=== PATIENT | female | born 1940 | race Caucasian/White ===

== ENCOUNTER 2017-08-03 06:18 | Day surgery (SDC) | payer OTHER, BC ==
[2017-08-01 09:57] VITALS: BMI 37.0
--- NOTE | 2017-08-01 10:36 | PAT Medication Instructions ---
Service Date Aug 01, 2017. Current Home Medication List Acetaminophen (Tylenol), 500-1,000 MG PO UD PRN for Pain or Fever Aspirin (Aspirin Ec), 81 MG PO HS Calcium Carbonate-Vitamin D (Calcium 600 + D), 1 TAB PO BID Empagliflozin (Jardiance), 10 MG PO QAM Esomeprazole Magnesium (Esomeprazole Magnesium), 1 CAP PO QAM Fish Oil (Lane-3), 1 CAP PO QAM Szyfjjndsdl-Ezozscmpkko-Mzp C- (Glucosamine Chondroitin), 1 TAB PO QAM Lorazepam (Ativan), 0.5 MG PO TID PRN for Anxiety Losartan Potassium (Cozaar), 100 MG PO QAM Metoprolol Succinate (Metoprolol Succinate ER), 25 MG PO HS Multivitamins (Daily Alec), 1 TAB PO QAM Ropinirole Hydrochloride (Ropinirole Er), 2 MG PO AFTERNOON Ropinirole Hydrochloride (Requip), 0.5 MG PO HS Simvastatin (Simvastatin), 10 MG PO QPM Medication Instructions For Your Scheduled Surgery - Check with surgeon for instructions: Aspirin (Aspirin Ec), 81 MG PO HS - Hold the following medications 24 hours prior to surgery: Ropinirole Hydrochloride (Ropinirole Er), 2 MG PO AFTERNOON Ropinirole Hydrochloride (Requip), 0.5 MG PO HS - Hold the following medications the morning of surgery: Multivitamins (Daily Alec), 1 TAB PO QAM Losartan Potassium (Cozaar), 100 MG PO QAM Fish Oil (Lane-3), 1 CAP PO QAM Mguovkclbyy-Rgauzaxoqqk-Ewz C- (Glucosamine Chondroitin), 1 TAB PO QAM Empagliflozin (Jardiance), 10 MG PO QAM Calcium Carbonate-Vitamin D (Calcium 600 + D), 1 TAB PO BID - Take the following medications the morning of surgery with a sip of water: Lorazepam (Ativan), 0.5 MG PO TID PRN for Anxiety (if needed) Esomeprazole Magnesium (Esomeprazole Magnesium), 1 CAP PO QAM Acetaminophen (Tylenol), 500-1,000 MG PO UD PRN for Pain or Fever (okay to take up to 4 hours prior to surgery if needed) - Take the following medications as scheduled the night before surgery: Simvastatin (Simvastatin), 10 MG PO QPM Metoprolol Succinate (Metoprolol Succinate ER), 25 MG PO HS Lorazepam (Ativan), 0.5 MG PO TID PRN for Anxiety (if needed) Calcium Carbonate-Vitamin D (Calcium 600 + D), 1 TAB PO BID Acetaminophen (Tylenol), 500-1,000 MG PO UD PRN for Pain or Fever (if needed) If you have any questions please call us at [phone] or [phone] or [phone]
[2017-08-01 11:09] LABS: BASO % 0.8 %; BASO ABS # 0.05 K/uL (0-0.2); EOS % 4.7 %; EOS ABS # 0.28 K/uL (0-0.5); HEMOGLOBIN 14.4 g/dL (12.0-16.0); IG# 0.05 K/uL (0.00-0.02); LYMPH % 34.5 %; LYMPH ABS # 2.04 K/uL (1.2-3.4); MEAN CORPUSCULAR HEMOGLOBIN 30.4 pg (25-34); MEAN CORPUSCULAR HGB CONC 32.7 g/dl (32-36); MEAN PLATELET VOLUME 11.2 fL (7.4-10.4); MONO % 9.8 %; MONO ABS # 0.58 K/uL (0.11-0.59); NEUT % 49.4 %; NEUT ABS # 2.91 K/uL (1.4-6.5); PLATELET COUNT 199 K/uL (130-400); RED CELL DISTRIBUTION WIDTH CV 13.7 % (11.5-14.5); RED CELL DISTRIBUTION WIDTH SD 46.6 fL (36.4-46.3); WHITE BLOOD COUNT 5.91 K/uL (4.8-10.8)
[2017-08-01 11:15] LABS: INR 0.9 (0.9-1.1)
--- NOTE | 2017-08-02 19:28 | HISTORY & PHYSICAL EXAMINATION ---
DATE OF ADMISSION: 08/03/2017 ADMISSION HISTORY AND PHYSICAL CHIEF COMPLAINT: Right shoulder injury. HISTORY OF PRESENT ILLNESS: This is a 77-year-old female patient of Dr. Childers who sustained an injury, lifting injury in March of 2007. She failed conservative treatment including intraarticular injections, physical therapy and anti-inflammatories. MRI did confirm that she had a rotator cuff tear, impingement and AC arthritis. After failure of conservative treatment, the patient wished to proceed with a right shoulder arthroscopic subacromial decompression, rotator cuff repair, and distal clavicle excision. PAST MEDICAL HISTORY: Hypertension, GERD, sleep apnea with the use of CPAP, anxiety, diabetes mellitus, rheumatoid arthritis, osteoarthritis, spine problems, spinal stenosis, acid reflux, hiatal hernia, obesity, and left breast cancer. SOCIAL HISTORY: Nonsmoker, nondrinker. FAMILY HISTORY: Noncontributory. REVIEW OF SYSTEMS: The patient complains of right shoulder pain and decreased strength since her injury. Otherwise, denies any shortness of breath, chest pain, nausea, vomiting or any other joint complaints. MEDICATIONS: Include metoprolol 25 mg daily, Requip 2 mg daily, Cozaar 100 mg daily, simvastatin 10 mg daily, aspirin 81 mg daily, calcium plus D b.i.d., Glucosamine chondroitin daily, multivitamin daily, fish oil daily, ropinirole 0.5 mg at bedtime, lorazepam 0.5 mg at bedtime p.r.n., pantoprazole 20 mg half a tablet daily as needed. Allergies: IVP Dye PHYSICAL EXAMINATION: GENERAL: Well-developed, well-nourished 77-year-old female in no acute distress. She is alert and oriented x3 and pleasant. HEENT: Normocephalic, atraumatic. Extraocular motions are intact. Pupils are equal and reactive to light. HEART: Regular rate and rhythm, no murmurs appreciated. LUNGS: Clear. ABDOMEN: Soft and nontender, bowel sounds are present. EXTREMITIES: Right shoulder reveals pain with impingement maneuvering. She has an active range of motion of 120, passively to 160. She has 3/5 strength globally. NEUROLOGIC: Neurovascularly, she is intact in her right upper extremity. DIAGNOSES: Right shoulder rotator cuff tear, impingement and distal clavicle arthritis. She also has a history of hypertension, hypercholesterolemia, gastroesophageal reflux disease, sleep apnea with the use of CPAP, anxiety, diabetes mellitus, rheumatoid arthritis, osteoarthritis, spine problems, spinal stenosis, acid reflux, hiatal hernia, obesity, and history of left mastectomy. PLAN: The patient was advised of her diagnosis. Indications, risks, benefits, and postop course have all been reviewed. The patient wishes to proceed with a right shoulder arthroscopic subacromial decompression, rotator cuff repair and possible distal clavicle excision. Necessary consent forms, preoperative testing and clearances were obtained. Please note that the patient cannot vein puncture in her left arm due to her left UE mastectomy. MTDD
[~2017-08-03] VITALS: Ht 160 cm; Wt 95.3 kg
[~2017-08-03 06:18] MED LIST: ASPI81TA28 PO; CALC-20 PO; CEFAZOLIN 2000MG IV PUSH 15 ML IV SCH; DEXAMETHASONE SOD INJ 4 MG/ML VIAL ONE; EMPA1TAB PO; ESOM45CA PO; FENTANYL CITRATE INJ 50 MCG/1 ML 2 ML VIAL ONE; GLUCTAB7 PO; LACTATED RINGER'S 1000ML 1,000 ML IV SCH; LORA-741 PO; LOSA100T65 PO; MIDAZOLAM HCL 1 MG/ML 2ML VIAL ONE; MULT-589 PO; OMEG10007 PO; ONDANSETRON INJ 2 MG/ML 2 ML VIAL ONE; PROPOFOL IV EMULSION 10 MG/ML 20 ML VIAL IV ONE; ROCURONIUM BROMIDE 10 MG/ML 5 ML VIAL IV ONE; ROPI0.5T PO; ROPI1TAB70 PO; SIMV-150 PO; TPRSR/50 PO; TYLOTC500 PO
[2017-08-03] MEDS ORDERED: ROPIVACAINE 0.5% 5 MG/ML 30 ML VIAL ONE (06:23)
[2017-08-03 07:13] VITALS: BP 131/81; PULSE 74; TEMP 36.4; O2SAT 92; Ht 160 cm; Wt 95.3 kg
[2017-08-03] MEDS ORDERED: EpINEphrine HCL INJ 1 MG/ML 5ML SYRINGE ONE ×2 (07:52→09:23)
--- NOTE | 2017-08-03 08:04 | History & Physical Bridge Note ---
H&P Re-Evaluation Bridge Note: I have examined the patient, reviewed the History & Physical and in the interval since the performance of the History & Physical I have noted the following changes of clinical significance: No changes noted
[2017-08-03] MEDS ORDERED: PHENYLEPHRINE 100MCG/ML 5ML SYR IV PRN (08:45)
[2017-08-03] MEDS ORDERED: EpHEDrine SULFATE INJ 50 MG/ML AMP IV PRN (08:45)
[2017-08-03] MEDS ORDERED: PHENYLEPHRINE 100MCG/ML 5ML SYR ONE (08:45)
[2017-08-03] MEDS ORDERED: ATROPINE SULFATE 0.1 MG/ML 5ML SYR IV PRN (08:45)
[2017-08-03] MEDS ORDERED: ONDANSETRON INJ 2 MG/ML 2 ML VIAL IV PRN (08:45)
[2017-08-03] MEDS ORDERED: EpHEDrine SULFATE 50MG/5ML SYR ONE (08:45)
[2017-08-03] MEDS ORDERED: FENTANYL CITRATE INJ 50 MCG/1 ML 2 ML VIAL ONE (08:47)
[2017-08-03] MEDS ORDERED: PROPOFOL IV EMULSION 10 MG/ML 20 ML VIAL IV ONE (08:48)
[2017-08-03] MEDS ORDERED: GLYCOPYRROLATE INJ 0.2 MG/ML VIAL ONE (08:52)
[2017-08-03] MEDS ORDERED: LIDOCAINE HCL 2% 2 ML VIAL (20MG/ML) ONE (08:54)
--- NOTE | 2017-08-03 10:30 | [facility] Post Operative Brief Note ---
Immediate Operative Summary Operative Date Aug 03, 2017. Pre-Operative Diagnosis Right Shoulder: Rotator Cuff Tear, Impingement and Distal Clavicle Arthritis Post-Operative Diagnosis Right Shoulder: Rotator Cuff Tear, Impingement and Distal Clavicle Arthritis Procedure(s) Performed right shoulder arthroscopy rotator cuff repair subacromial decompression and distal clavicle excision Surgeon Dr. Head Coat Agent Surgeon(s) WALDEMAR Alberts Estimated Blood Loss 5cc Findings Consistent with Post-Op Diagnosis Specimens none per surgeon Drains None Anesthesia Type General Regional Complication(s) none Disposition Disposition: Recovery Room / PACU
[2017-08-03] MEDS ORDERED: SODIUM CHLORIDE 0.9% 1000ML 1,000 ML IV SCH (10:38)
[2017-08-03] MEDS ORDERED: OXYC-57 PO (10:41)
--- NOTE | 2017-08-03 10:44 | Discharge Instructions ---
Discharge Instructions Date of Service Aug 03, 2017. Admission Reason for Admission: Right Shoulder Impingement Syndrome, Rtc Tear, Acr Discharge Discharge Diagnosis / Problem: Right shoulder rotator cuff repair, decompression and distal clavicle excis Discharge Goals Goal(s): Improve function Activity Recommendations Activity Limitations: as noted below . Instructions / Follow-Up Instructions / Follow-Up Please see Printed Home Instructions in Chart NO formal physical therapy, please see printed home exercise sheet in chart. Follow up with Dr. Head 10-12 days post op as scheduled, call [phone] to confirm if needed. Current Hospital Diet Patient's current hospital diet: Discharge Diet Recommended Diet: Diabetes Type 2 Diet Procedures Procedures Performed: right shoulder arthroscopy rotator cuff repair subacromial decompression and distal clavicle excision Pending Studies Studies pending at discharge: no Medical Emergencies . Who to Call and When: Medical Emergencies: If at any time you feel your situation is an emergency, please call 911 immediately. . Non-Emergent Contact Non-Emergency issues call your: Primary Care Provider . "Provider Documentation" section prepared by Can Michele. . VTE Core Measure Inpt VTE Proph given/why not?: Treatment not indicated
[2017-08-03] MEDS ORDERED: OXYCODONE/ACETAMINOPHEN 5-325 TAB PO PRN ×2 (10:45)
[2017-08-03] MEDS: HYDROmorphone INJ 2 MG/ML SYR/VIAL IV PRN ×4 (10:52→11:09)
--- NOTE | 2017-08-03 11:00 | OPERATIVE REPORT ---
DATE OF OPERATION: 08/03/2017 INDICATION FOR PROCEDURE: The patient is a 77-year-old female who presents with right shoulder pain, chronic. She was worked up with x-rays and MRI demonstrating a full thickness rotator cuff tear of the supraspinatus with minimal retraction and inflammation of AC joint consistent with AC joint arthritis. She may have some tendinopathy of the biceps tendon. PREOPERATIVE DIAGNOSES: Right shoulder subacromial impingement, acromioclavicular joint arthritis and rotator cuff tear. POSTOPERATIVE DIAGNOSES: Same. PROCEDURE: Right shoulder arthroscopy with arthroscopic subacromial decompression, distal clavicle excision and rotator cuff repair. SURGEON: Dr. Head. SOFTWARE TEAM LEADER: Can Michele PA-C. ANESTHESIA: Regional block and general. OPERATIVE PROCEDURE: The patient was taken to the operating room after a regional block anesthetic placed in the holding area. She was placed under general anesthetic. She was placed on a 70 degree beach chair position, a Schlein shoulder table. The right upper extremity was prepped and draped in sterile fashion. Examination noted she had good range of motion and she had an obese arm. Arthroscopy was performed starting with a posterior arthroscopy portal in the soft spot, the rotator interval, and a lateral portal in the subacromial space and anterior and posterior superior lateral portals for suture anchor placement. In the glenohumeral joint, she had normal articular surface on the glenoid and humeral head and normal labrum, some synovitis around the labrum. The labral attachment was intact. The biceps anchor was intact. She had some a little bit of widening of the biceps tendon in general, but no fraying of the biceps tendon at all. The subscapularis tendon was intact. Supraspinatus tendon had a full thickness rotator cuff tear with minimal retraction, but there was some delamination between the superior and inferior release and some of this was extending toward the infraspinatus anterior edge. There was a little undersurface tearing of the supraspinatus. In the subacromial space, a crescent fairly large supraspinatus tendon tear was noted with the entire supraspinatus tendon being torn and mildly retracted. There was a soft tissue cuff tissue at the greater tuberosity shortening to the tendon tissue. There was fraying of the CA ligament, type 2 acromion process and probably inferior AC joint causing impingement and there was grade 4 wear in the posterior aspect of the distal clavicle articular surface with some chronic bursitis. In the glenohumeral joint, I did a minor debridement of the synovium around the labrum and debrided the undersurface of the rotator cuff tear. I debrided some of the footprint that we could see better from the intraarticular view. Then, in the subacromial space a thorough bursectomy was performed removing all pathological bursa and I ablated the bursa on the undersurface of the acromion and released the CA ligament off the spur on the anterior acromion. I ablated the inferior AC joint capsule to expose 1 cm of distal clavicle. The edges of the rotator cuff were debrided again. The footprint was clearly debrided. The entire footprint of the supraspinatus from the articular margin out the lateral greater tuberosity and off the edge of the lateral greater tuberosity to get bleeding response to help with healing. The acromioplasty was performed using a 5.5 bur planing down the acromion to a type 1 flat shape and 1 cm distal clavicle was resected. The rotator cuff was repaired using dual row fixation. The medial row had good bone laterally. She had fair bone with the anterior anchor being in softer bone adjacent to the bicipital groove and a little bit better bone in the supraspinatus anchor area. The medial row with Healicoil 5.5 mm Ferreira [employer]hew anchors with tapes and sutures. Sutures were passed in a horizontal mattress fashion and tied down with a Pepe sliding locking knot 3 reverse half hitches on alternating posts and then #1 Ultrabraid suture from each anchor and 1 tape from each anchor was placed into the posterior footprint anchor and similar sutures were placed into the anterior footprint with a crisscross compression across the repair. Despite the soft bone, the anchor felt satisfactory with range of motion of the arm, but there was no tension repair to over the side and there was no impingement. The port sites were closed with nylon sutures. Sterile dressings applied and a pillow sling immobilizer. The patient tolerated the procedure well. Can Michele PA-C was my clinical education assistant. He functioned as clinical education assistant for the entire procedure. He assisted in patient positioning, prepping, draping, arm positioning, instrument management, suture management during the repair and performed the skin closure, dressings and sling application, and will participate in postoperative care of the patient. I attest to the content of the Intraoperative Record and any orders documented therein. Any exception s are noted below.
[2017-08-03] MEDS ORDERED: HYDROmorphone INJ 1 MG/ML SYR ONE (11:24)
[2017-08-03] MEDS ORDERED: NURSING VERBAL MED ORDER ONE (11:24)
[2017-08-03] MEDS ORDERED: KETOROLAC TROMETHAMINE 30 MG/ML VIAL ONE (11:24)
[2017-08-03 12:10] VITALS: BP 134/61; PULSE 92; TEMP 36.5; O2SAT 93
[2017-08-03 12:40] VITALS: BP 131/60; PULSE 94; O2SAT 93
--- NOTE | 2017-08-03 13:03 | Anesthesiology Progress Note ---
Anesthesia Post Op Note Date & Time Aug 03, 2017 at 13:03 Vital Signs Pain Intensity: 2.0 Vital Signs Past 12 Hours Date Time Temp Pulse Resp B/P (MAP) Pulse Ox O2 Delivery O2 Flow Rate FiO2 08/03/17 12:05 36.4 91 14 131/68 93 Nasal Cannula 3 08/03/17 11:55 91 19 150/73 94 Nasal Cannula 3 08/03/17 11:45 93 11 141/70 93 Nasal Cannula 4 08/03/17 11:35 91 11 123/92 93 Nasal Cannula 4 08/03/17 11:25 91 12 158/73 94 Nasal Cannula 2 08/03/17 11:15 97 15 147/70 93 Nasal Cannula 2 08/03/17 11:05 98 22 141/80 94 Nasal Cannula 2 08/03/17 10:55 97 15 146/69 95 Oxymask 10 08/03/17 10:45 99 18 159/75 97 Oxymask 10 08/03/17 10:39 36.4 104 17 162/84 96 Oxymask 10 08/03/17 07:13 36.4 74 18 131/81 (98) 92 Room Air Notes Mental Status: alert / awake / arousable, participated in evaluation Pt Amnestic to Procedure: Yes Nausea / Vomiting: adequately controlled Pain: adequately controlled Airway Patency, RR, SpO2: stable & adequate BP & HR: stable & adequate Hydration State: stable & adequate Anesthetic Complications: no major complications apparent
[2017-08-03 13:10] VITALS: BP 137/64; PULSE 90; TEMP 36.3; O2SAT 94
== END 2017-08-03 13:54 | disposition home or self-care (01) ==
LOC: C.ACU 06:18
PROVIDERS: ATTEND Orthopaedic Surgery Sports Medicine
DX: M25.811 Other specified joint disorders, right shoulder (principal); S46.011A Strain of muscle(s) and tendon(s) of the rotator cuff of right shoulder, initial encounter; X50.9XXA Other and unspecified overexertion or strenuous movements or postures, initial encounter; I10 Essential (primary) hypertension; K21.9 Gastro-esophageal reflux disease without esophagitis; G47.30 Sleep apnea, unspecified; F41.9 Anxiety disorder, unspecified; E11.9 Type 2 diabetes mellitus without complications; M19.90 Unspecified osteoarthritis, unspecified site; E66.9 Obesity, unspecified; Z85.3 Personal history of malignant neoplasm of breast; Z79.899 Other long term (current) drug therapy; Z79.82 Long term (current) use of aspirin

== ENCOUNTER → 2017-08-25 | Outpatient (CLI) | payer OTHER, BC ==
[~2017-08-25] VITALS: Ht 160 cm; Wt 208.2 kg
[~2017-08-25] MED LIST changes: -CEFAZOLIN 2000MG IV PUSH 15 ML IV SCH; -DEXAMETHASONE SOD INJ 4 MG/ML VIAL ONE; -FENTANYL CITRATE INJ 50 MCG/1 ML 2 ML VIAL ONE; -LACTATED RINGER'S 1000ML 1,000 ML IV SCH; -MIDAZOLAM HCL 1 MG/ML 2ML VIAL ONE; -OMEG10007 PO; -ONDANSETRON INJ 2 MG/ML 2 ML VIAL ONE; +OXYC-57 PO; -PROPOFOL IV EMULSION 10 MG/ML 20 ML VIAL IV ONE; -ROCURONIUM BROMIDE 10 MG/ML 5 ML VIAL IV ONE; -TYLOTC500 PO
[2017-08-25 12:54] VITALS: BP 131/82; PULSE 64; Ht 160 cm; Wt 208.2 kg
== END | disposition home or self-care (01) ==
LOC: C.NEUR 12:20
PROVIDERS: ATTEND Internal Medicine Pulmonary Disease
DX: G47.33 Obstructive sleep apnea (adult) (pediatric) (principal); I10 Essential (primary) hypertension; E66.9 Obesity, unspecified; Z68.36 Body mass index [BMI] 36.0-36.9, adult

== ENCOUNTER 2020-03-31 10:57 | Observation (INO) ==
--- NOTE | 2020-03-31 11:39 | Emergency Department Note ---
Impression & Plan Left leg weakness ED Provider Note Provider: Keith oTrres MD DATE OF SERVICE: 03/31/2020 CHIEF COMPLAINT: Weakness HISTORY OF PRESENT ILLNESS: Patient is a 79-year-old female with history of prediabetes, hypertension presenting here today complaining of some left-sided weakness starting yesterday. Sometimes yesterday morning maybe around 10 AM or so began to have some issues walking with her left leg. Was able to drive to get around but just felt a bit unsteady with that in intensity moving quite as well. Denies significant issue with her right leg with the arm. Denies headache or speech issues. Denies trauma. Denies fever. Patient denies likely any falls. Denies any acute visual changes. Patient states due to some concerns about her kidney she not currently on aspirin or antiplatelets. REVIEW OF SYSTEMS: A total of 10 review of systems was obtained and negative except as stated above in the HPI. PAST MEDICAL HISTORY: As noted above MEDICATIONS: Reviewed home medication list SOCIAL HISTORY: Lives at home, non-smoker PHYSICAL EXAM: GENERAL: alert and oriented in no acute distress on stretcher Head: normocephalic and atraumatic EYES: No injection, discharge or icterus. PERRL, EOMI. NECK: Trachea midline. Supple. ENT: Mucous membranes pink and moist. Pharynx without erythema or exudate. Tongue midline. LUNGS: Airway patent. No retractions. Breath sounds clear HEART: Regular rate and rhythm. No chest wall tenderness ABDOMEN: Soft and non-tender, without guarding or rebound. SKIN: Acyanotic, warm, dry, without rashes EXTREMITIES: Without swelling, tenderness or deformity NEUROLOGICAL: No aphasia. No facial droop or slurred speech. Normal strength and tone in the extremities. Sensation to gross touch normal. There is a slight left arm pronator drift and some difficulty with left [id number] movement in comparison to the contralateral side. EK bpm sinus rhythm first-degree AV block. No PVC. No acute ST segment elevation or depression. Normal QTC. CONTINUOUS CARDIAC MONITORING: was ordered and showed a heart rate of 62 bpm in normal sinus rhythm Patient's hypertension was referred to the hospitalist Patient's laboratory studies and imaging reviewed. Differential includes Infection, dehydration, metabolic abnormality, hypo /hyperglycemia, electrolyte disturbance, anemia, hypoxia, cardiac sources, intracerebral event, toxicologic, neurologic, as well as other pathologies. IMPRESSION/MEDICAL DECISION MAKING: Patient presents with onset yesterday of some slight left-sided weakness predominantly leg. Well-appearing here without severe deficit although there is some subtle left arm pronator drift and some subtle left heel tran ataxia noted. Neurologically otherwise seems intact. Basic labs were obtained and a CT of the head was obtained. Doubt a LVO and given her IV contrast allergy did not immediately pursue CT angiogram of the head. Basic laboratory states here without significant abnormality. No evidence of severe electrolyte abnormality or UTI. CT the head per radiology without evidence of intracranial bleed or large territory stroke. Patient with the subtle signs could very well of suffered a small stroke and discussed with her and her daughter. She and her daughter were in agreement for further observation here in the hospital given her persistence of symptoms and mild deficits. Discussed with her pursuing MRI to exclude stroke. Patient was in agreement with this plan but did request some Ativan for MRI. DIAGNOSIS: Left leg weakness DISPOSITION: Hospitalist will evaluate Patient was agreeable with this plan. Past Med/Surg History Surgical History (Updated 05/27/19 @ 13:59 by Gianna Matute PA-C) History of hysterectomy Family History (Updated 05/27/19 @ 14:01 by Gianna Matute PA-C) Mother Myocardial infarction Father Myocardial infarction Brother Obstructive sleep apnea Social History (Updated 05/27/19 @ 14:01 by Gianna Matute PA-C) Smoking Status: Former smoker Tobacco Type: Cigarettes Preferred Language: Beninese marital status: Feels Safe at Home: Yes Allergies Allergies Allergy/AdvReac Type Severity Reaction Status Date / Time Iodinated Contrast Media Allergy Unknown IVP DYE Verified 03/31/20 13:09 CAUSED HIVES Home Meds Home Medications Medication Instructions Recorded Confirmed calcium carb,lactat-vitamin D3 1 tab PO BID 04/05/19 03/31/20 cholecalciferol (vitamin D3) 25 1,000 units PO QAM 04/05/19 03/31/20 mcg (1,000 unit) capsule losartan 100 mg tablet 100 mg PO QAM 04/05/19 03/31/20 multivitamin 1 tab PO QAM 04/05/19 03/31/20 omega-3 fatty acids 1,000 mg 1,000 mg PO QAM 04/05/19 03/31/20 capsule ropinirole 0.5 mg tablet 0.5 mg PO HS tab 04/05/19 03/31/20 ropinirole 2 mg tablet,extended 2 mg PO DAILY@1700 04/05/19 03/31/20 release 24 hr simvastatin 10 mg tablet 10 mg PO HS 04/05/19 03/31/20 bupropion HCl (smoking deter) 150 mg PO QDD 03/31/20 03/31/20 hydrochlorothiazide 12.5 mg PO DAILY PRN 03/31/20 03/31/20 metoprolol succinate 12.5 mg PO HS 03/31/20 03/31/20 pantoprazole 40 mg PO QAM 03/31/20 03/31/20 Results & Data (ED) Vital Signs Vital Signs - 24 hr 03/31/20 11:15 03/31/20 12:30 03/31/20 12:50 Temperature 36.6 C Temperature Source Oral Pulse Rate 68 65 61 Pulse Rate from SpO2 Sensor 64 63 Pulse Rhythm Regular Pulse Strength Normal Respiratory Rate 20 15 20 Respiratory Effort / Characteristics Non-Labored Spontaneous Respiratory Depth Normal Respiratory Pattern Regular Blood Pressure 164/99 H 149/79 H 149/79 H Blood Pressure Mean 120 108 108 Blood Pressure Position Sitting Pulse Oximetry 97 95 97 Oxygen Delivery Method Room Air Sepsis Recent Fever Within 48 Hours No Sepsis New/Unexplained Change in Mental Status No Sepsis Action Taken by Nursing No Action Required Laboratory Data Result diagrams: 03/31/20 11:40 03/31/20 11:40 Lab Results 03/31/20 03/31/20 03/31/20 Range/Units 11:25 11:40 11:40 WBC 6.87 (4.8-10.8) K/uL RBC 4.54 (4.2-5.4) M/uL Hgb 13.8 (12.0-16.0) g/dL Hct 42.1 (37-47) % MCV 92.7 (80-100) fL MCH 30.4 (25-34) pg MCHC 32.8 (32-36) g/dL RDW Std Deviation 47.2 H (36.4-46.3) fL RDW Coeff of Andree 13.9 (11.5-14.5) % Plt Count 200 (130-400) K/uL MPV 11.2 H (7.4-10.4) fL Immature Gran % (Auto) 0.6 % Neut % (Auto) 64.5 % Lymph % (Auto) 25.2 % Woods % (Auto) 6.8 % Eos % (Auto) 2.3 % Baso % (Auto) 0.6 % Neut # (Auto) 4.43 (1.4-6.5) K/uL Lymph # (Auto) 1.73 (1.2-3.4) K/uL Woods # (Auto) 0.47 (0.11-0.59) K/uL Eos # (Auto) 0.16 (0-0.5) K/uL Baso # (Auto) 0.04 (0-0.2) K/uL Immature Gran # (Auto) 0.04 H (0.00-0.02) K/uL PT (9.0-12.0) Seconds INR (0.9-1.1) APTT (21.0-31.0) Seconds PTT Ratio Sodium (136-145) mmol/L Potassium (3.5-5.1) mmol/L Chloride (98-107) mmol/L Carbon Dioxide (21-32) mmol/L Anion Gap (3-11) BUN (7-18) mg/dl Creatinine (0.6-1.2) mg/dl Est Cr Clr Drug Dosing ml/min Est GFR ( Amer) Est GFR (Non-Af Amer) BUN/Creatinine Ratio (10-20) Glucose (70-99) mg/dl POC Glucose (70-99) mg/dl Calcium (8.5-10.1) mg/dl Magnesium (1.8-2.4) mg/dl Total Bilirubin (0.2-1) mg/dl AST (15-37) U/L ALT (12-78) U/L Alkaline Phosphatase (45-117) U/L Troponin I (0-0.045) ng/ml Total Protein (6.4-8.2) gm/dl Albumin (3.4-5.0) gm/dl Globulin (2.5-4.0) gm/dl Albumin/Globulin Ratio (0.9-2) Urine Color Yellow Urine Appearance Clear (Clear) Urine pH 6.5 (4.5-7.5) Ur Specific [place] 1.008 (1.000-1.030) Urine Protein Negative (Negative) Urine Glucose (UA) Negative (Negative) Urine Ketones Negative (Negative) Urine Blood Negative (Negative) Urine Nitrite Negative (Negative) Urine Bilirubin Negative (Negative) Urine Urobilinogen Negative (Negative) Ur Leukocyte Esterase Negative (Negative) Blood Type O Positive Antibody Screen NEGATIVE 03/31/20 03/31/20 03/31/20 Range/Units 11:40 11:40 11:59 WBC (4.8-10.8) K/uL RBC (4.2-5.4) M/uL Hgb (12.0-16.0) g/dL Hct (37-47) % MCV (80-100) fL MCH (25-34) pg MCHC (32-36) g/dL RDW Std Deviation (36.4-46.3) fL RDW Coeff of Andree (11.5-14.5) % Plt Count (130-400) K/uL MPV (7.4-10.4) fL Immature Gran % (Auto) % Neut % (Auto) % Lymph % (Auto) % Woods % (Auto) % Eos % (Auto) % Baso % (Auto) % Neut # (Auto) (1.4-6.5) K/uL Lymph # (Auto) (1.2-3.4) K/uL Woods # (Auto) (0.11-0.59) K/uL Eos # (Auto) (0-0.5) K/uL Baso # (Auto) (0-0.2) K/uL Immature Gran # (Auto) (0.00-0.02) K/uL PT 10.3 (9.0-12.0) Seconds INR 1.0 (0.9-1.1) APTT 26.9 (21.0-31.0) Seconds PTT Ratio 1.0 Sodium 140 (136-145) mmol/L Potassium 4.2 (3.5-5.1) mmol/L Chloride 108 H (98-107) mmol/L Carbon Dioxide 26 (21-32) mmol/L Anion Gap 6.0 (3-11) BUN 23 H (7-18) mg/dl Creatinine 1.28 H (0.6-1.2) mg/dl Est Cr Clr Drug Dosing 39.4 ml/min Est GFR ( Amer) 46.7 Est GFR (Non-Af Amer) 40.3 BUN/Creatinine Ratio 18.0 (10-20) Glucose 107 H (70-99) mg/dl POC Glucose 108 H (70-99) mg/dl Calcium 9.8 (8.5-10.1) mg/dl Magnesium 2.4 (1.8-2.4) mg/dl Total Bilirubin 0.5 (0.2-1) mg/dl AST 15 (15-37) U/L ALT 24 (12-78) U/L Alkaline Phosphatase 81 (45-117) U/L Troponin I < 0.015 (0-0.045) ng/ml Total Protein 7.9 (6.4-8.2) gm/dl Albumin 3.6 (3.4-5.0) gm/dl Globulin 4.3 H (2.5-4.0) gm/dl Albumin/Globulin Ratio 0.8 L (0.9-2) Urine Color Urine Appearance (Clear) Urine pH (4.5-7.5) Ur Specific [place] (1.000-1.030) Urine Protein (Negative) Urine Glucose (UA) (Negative) Urine Ketones (Negative) Urine Blood (Negative) Urine Nitrite (Negative) Urine Bilirubin (Negative) Urine Urobilinogen (Negative) Ur Leukocyte Esterase (Negative) Blood Type Antibody Screen Discharge Plan Visit Data Chief Complaint: Weakness Stated Complaint: LEFT SIDE IS WEAK/BALANCE ISSUES ED Provider: Keith Torres Discharge Problem: Left leg weakness Patient Disposition: Being Evaluated by Hospitalist Forms Stand Alone Forms: [facility] Prescriptions Prescriptions: No Action calcium carb,lactat-vitamin D3 1 tab PO BID RF: 0 losartan [Cozaar] 100 mg tablet 100 mg PO QAM RF: 0 omega-3 fatty acids [Fish Oil Concentrate] 1,000 mg capsule 1,000 mg PO QAM RF: 0 multivitamin tablet 1 tab PO QAM RF: 0 ropinirole [Requip XL] 2 mg tablet extended release 24 hr 2 mg PO DAILY@1700 RF: 0 ropinirole 0.5 mg tablet 0.5 mg PO HS RF: 0 simvastatin 10 mg tablet 10 mg PO HS RF: 0 cholecalciferol (vitamin D3) 1,000 unit capsule 1,000 units PO QAM RF: 0 pantoprazole 40 mg tablet,delayed release (DR/EC) 40 mg PO QAM RF: 0 metoprolol succinate 25 mg tablet extended release 24 hr 12.5 mg PO HS RF: 0 hydrochlorothiazide 12.5 mg Tablet 12.5 mg PO DAILY PRN (Reason: Edema) RF: 0 bupropion HCl (smoking deter) 150 mg tablet extended release 12 hr 150 mg PO QDD RF: 0 Referrals Referrals: Amelia Frye [Primary Care Provider] -
[2020-03-31 11:49] LABS: Appearance Urine Clear (Clear); Bilirubin Urine Negative (Negative); Blood Urine Negative (Negative); Color Urine Yellow; Glucose Urine UA Negative (Negative); Ketones Urine Negative (Negative); Leukocyte Esterase Urine Negative (Negative); Nitrite Urine Negative (Negative); Protein Urine Negative (Negative); Specific Gravity Urine 1.008 (1.000-1.030); Urobilinogen Urine Negative (Negative); pH Urine 6.5 (4.5-7.5)
[2020-03-31 12:20] LABS: Basophils # (auto) 0.04 K/uL (0-0.2); Basophils % (auto) 0.6 %; Eosinophils # (auto) 0.16 K/uL (0-0.5); Eosinophils % (auto) 2.3 %; Hematocrit (blood only) 42.1 % (37-47); Hemoglobin 13.8 g/dL (12.0-16.0); Immature Granulocytes # (auto) 0.04 K/uL (0.00-0.02); Immature Granulocytes % (auto) 0.6 %; Lymphocytes # (auto) 1.73 K/uL (1.2-3.4); Lymphocytes % (auto) 25.2 %; Mean Corpuscular Hemoglobin 30.4 pg (25-34); Mean Corpuscular Hgb Conc 32.8 g/dL (32-36); Mean Corpuscular Volume 92.7 fL (80-100); Mean Platelet Volume 11.2 fL (7.4-10.4); Monocytes # (auto) 0.47 K/uL (0.11-0.59); Monocytes % (auto) 6.8 %; Neutrophils # (auto) 4.43 K/uL (1.4-6.5); Neutrophils % (auto) 64.5 %; Platelet Count 200 K/uL (130-400); RDW Coefficient of Variation 13.9 % (11.5-14.5); RDW Standard Deviation 47.2 fL (36.4-46.3); Red Blood Count 4.54 M/uL (4.2-5.4); White Blood Count 6.87 K/uL (4.8-10.8)
--- NOTE | 2020-03-31 12:22 | CT Scan Report ---
CT head/brain wo con CLINICAL HISTORY: Dyspnea difficulty walking. COMPARISON STUDY: MRI dated 05/10/2019 TECHNIQUE: Axial CT of the brain is performed from the vertex to the skull base. IV contrast was not administered for this examination. A dose lowering technique was utilized adhering to the principles of ALARA. CT DOSE: 537.48 mGy.cm FINDINGS: No intra or extra-axial mass lesions are visualized. There is no CT evidence of acute cortical infarc tion. There is no evidence of midline shift. There is no acute hemorrhage. No calvarial fractures ar e visualized. There are patchy white matter hypodensities likely on a small vessel basis. There is no evidence of pathologic ventricular dilatation. There is no evidence of acute sinusitis IMPRESSION: No acute intracranial findings ACT 112: Negative or not required by law. Electronically signed by: Hermilo Nieves M.D. 03/31/2020 12:21 PM
[2020-03-31 12:32] LABS: Partial Thromboplastin Time 26.9 Seconds (21.0-31.0); Prothrombin Time 10.3 Seconds (9.0-12.0)
[2020-03-31 12:39] LABS: Alanine Aminotransferase 24 U/L (12-78); Albumin Level 3.6 gm/dl (3.4-5.0); Aspartate Aminotransferase 15 U/L (15-37); Blood Urea Nitrogen 23 mg/dl (7-18); Calcium 9.8 mg/dl (8.5-10.1); Carbon Dioxide 26 mmol/L (21-32); Chloride 108 mmol/L (98-107); Creatinine Clr Calc Pharmacy 39.4 ml/min; Est GFR (African American) 46.7; Est GFR (Non-African American) 40.3; Glucose 107 mg/dl (70-99); Magnesium 2.4 mg/dl (1.8-2.4); Potassium 4.2 mmol/L (3.5-5.1); Sodium 140 mmol/L (136-145)
[2020-03-31 12:43] LABS: Albumin Globulin Ratio 0.8 (0.9-2); Alkaline Phosphatase 81 U/L (45-117); Bilirubin,Total 0.5 mg/dl (0.2-1); Globulin 4.3 gm/dl (2.5-4.0); Total Protein 7.9 gm/dl (6.4-8.2); Troponin I < 0.015 ng/ml (0-0.045)
--- NOTE | 2020-03-31 12:58 | XRay Report ---
XR chest 1V portable CLINICAL HISTORY: weakness COMPARISON STUDY: 09/25/2014 FINDINGS: The heart is normal in size. There is no failure. There is no lobar consolidation. Postsurg ical changes involve the distal right clavicle. No pleural effusions are visualized.[ IMPRESSION: No active disease in the chest. ACT 112: Negative or not required by law. Electronically signed by: Hermilo Nieves M.D. 03/31/2020 12:57 PM
[2020-03-31] MEDS ORDERED: LORazepam 0.5 MG/1 ML VIAL IV ONE (13:04)
--- NOTE | 2020-03-31 15:00 | History & Physical Report ---
Date of Service March 31, 2020 Assessment & Plan (1) Left leg weakness: (2) Stroke-like episode: Present on admission with let arm and leg weakness Need to r/o acute CVA CT head showed no acute intracranial abnormality Will get MRI of the brain and carotid doppler u/s Will start on aspirin 81mg Will consult neurology PT/OT/Speech eval Will check Lipid panel, TSH, B12 level Continue statin Will check echo Continue neuro check Will monitor in telemetry HTN BP stable Will hold HCTZ to allow permissive hypertension Continue Losartan Continue monitor BP Restless leg syndrome Continue requip DEE Continue Cpap GERD Continue PPI DVT px on heparin subq CODE STATUS full code Disposition Will discharge once medically stable History of Present Illness Chief Complaint: Left sided weakness Primary Care Provider: Amelia Frye 79 yo with PMH of HTN, Obstructive sleep area, restlessness, dyslipidemia, GERD present to ER with left sided weakness. Pt said that yesterday she woke up with left arm and leg weakness. She said that her gait was a little unsteady. Daughter at bedside said that she had some coordination's problem. Her daughter said that she felt something at the bottom of her left feet that felt like walking on a grass. Pt said that in the past she develops numbness in her fingers, but this time she fell something was off. She said that she has restless leg syndrome and the medication does not seem to provide much relief. Daughter said that she did not notice her to have any slurred speech, facial droop, altered mental status and slurred speech. Pt denies any any chest pain, palpitation, dizziness, numbness and SOB. Allergies Allergy/AdvReac Type Severity Reaction Status Date / Time Iodinated Contrast Media Allergy Unknown IVP DYE Verified 03/31/20 13:09 CAUSED HIVES Home Medications Home Medications Medication Instructions Recorded Confirmed Type calcium carb,lactat-vitamin D3 1 tab PO BID 04/05/19 03/31/20 History cholecalciferol (vitamin D3) 25 1,000 units PO QAM 04/05/19 03/31/20 History mcg (1,000 unit) capsule losartan 100 mg tablet 100 mg PO QAM 04/05/19 03/31/20 History multivitamin 1 tab PO QAM 04/05/19 03/31/20 History omega-3 fatty acids 1,000 mg 1,000 mg PO QAM 04/05/19 03/31/20 History capsule ropinirole 0.5 mg tablet 0.5 mg PO HS tab 04/05/19 03/31/20 History ropinirole 2 mg tablet,extended 2 mg PO DAILY@1700 04/05/19 03/31/20 History release 24 hr simvastatin 10 mg tablet 10 mg PO HS 04/05/19 03/31/20 History bupropion HCl (smoking deter) 150 mg PO QDD 03/31/20 03/31/20 History hydrochlorothiazide 12.5 mg PO DAILY PRN 03/31/20 03/31/20 History metoprolol succinate 12.5 mg PO HS 03/31/20 03/31/20 History pantoprazole 40 mg PO QAM 03/31/20 03/31/20 History Past Med/Surg History Surgical History History of hysterectomy Family History (Updated 05/27/19 @ 14:01 by Gianna Matute PA-C) Mother Myocardial infarction Father Myocardial infarction Brother Obstructive sleep apnea Social History (Updated 05/27/19 @ 14:01 by Gianna Matute PA-C) Smoking Status: Former smoker Tobacco Type: Cigarettes Smoking End Date: 1994; Hx Alcohol Use: No Hx Substance Use: No Preferred Language: Dutch Communication Ability: Effective Cook Restaurant Required: No Beliefs That Will Affect Care: None marital status: Current Living Situation: Spouse Other Information That Helps Us Care for You: No Feels Safe at Home: Yes Safety Concerns: Feels Safe At This Time Assistive Devices: Denture - Upper, Denture - Lower and Glasses Physical Exam Physical Exam: General- No acute distress Head- atraumatic Eyes- PERRL, EOMI, ENT- oropharynx clear Neck- supple, no JVD Lungs- clear to auscultation Heart- regular rhythm; no murmur Abdomen- normal bowel sounds, soft, nontender Extremities- no calf tenderness Neuro- alert, oriented x 3; PERRL, EOMI; no facial palsy; no dysarthria, strength 4/5 in LUE Skin- warm & dry Results & Data Results & Data ([facility]) Vital Signs (Past 12 Hours) Vital Signs Temp Pulse Pulse Resp BP BP Pulse Ox 03/31/20 14:26 80 18 143/81 H 98 03/31/20 14:08 36.6 C 68 18 149/79 H 97 03/31/20 12:50 61 20 149/79 H 97 03/31/20 12:30 65 15 149/79 H 95 03/31/20 11:15 36.6 C 68 20 164/[address] head/brain wo con CLINICAL HISTORY: Dyspnea difficulty walking. COMPARISON STUDY: MRI dated 05/10/2019 TECHNIQUE: Axial CT of the brain is performed from the vertex to the skull base. IV contrast was not administered for this examination. A dose lowering technique was utilized adhering to the principles of ALARA. CT DOSE: 537.48 mGy.cm FINDINGS: No intra or extra-axial mass lesions are visualized. There is no CT evidence of acute cortical infarction. There is no evidence of midline shift. There is no acute hemorrhage. No calvarial fractures are visualized. There are patchy white matter hypodensities likely on a small vessel basis. There is no evidence of pathologic ventricular dilatation. There is no evidence of acute sinusitis IMPRESSION: No acute intracranial findings ACT 112: Negative or not required by law. Electronically signed by: Hermilo Nieves M.D. 03/31/2020 12:21 PM Dictated: 03/31/20 1218 Transcribed: 03/31/20 1218 XR chest 1V portable CLINICAL HISTORY: weakness COMPARISON STUDY: 09/25/2014 FINDINGS: The heart is normal in size. There is no failure. There is no lobar consolidation. Postsurgical changes involve the distal right clavicle. No pleural effusions are visualized.[ IMPRESSION: No active disease in the chest. ACT 112: Negative or not required by law. Electronically signed by: Hermilo Nieves M.D. 03/31/2020 12:57 PM Dictated: 03/31/20 1255 Transcribed: 03/31/20 1255
[2020-03-31] MEDS ORDERED: PHARMACIST DISCHARGE MED REC CONSULT PRN (16:08)
[2020-03-31] MEDS ORDERED: SODIUM CHLORIDE 0.9% 1000ML 1,000 ML IV SCH (16:08)
[2020-03-31] MEDS ORDERED: ASPIRIN 81 MG ECTAB PO STA (16:08)
[2020-03-31] MEDS: BuPROPion SR 150 MG TABCR PO SCH (17:41)
[2020-03-31] MEDS ORDERED: LORazepam 0.5 MG TAB PO STA (20:16)
[2020-03-31] MEDS ORDERED: LORazepam 0.5 MG TAB ONE (20:19)
[2020-03-31] MEDS ORDERED: METOPROLOL SUCC 25MG EXT REL TAB PO SCH (21:00)
[2020-03-31] MEDS ORDERED: SIMVASTATIN 10 MG TAB PO SCH (21:00)
[2020-03-31] MEDS ORDERED: ROPINIROLE HCL 0.25 MG TABLET PO SCH (21:00)
[2020-03-31] MEDS: HEPARIN SOD 5,000 UNIT/0.5 ML VIAL SQ SCH (21:55)
[2020-03-31] MEDS: CALCIUM 600MG + VIT D 400 IU TAB PO SCH (21:55)
--- NOTE | 2020-03-31 22:43 | Communication Note ---
Date of Service: March 31, 2020 Received call from [employer]. Brain MRI initial read: Small acute/subacute infarct involving the right valdez radiata. AP Acute CVA Change to full admission. Aspirin for secondary stroke prevention. Will relay to AM provider.
[2020-04-01] MEDS ORDERED: MELATONIN 3 MG TAB PO PRN (00:13)
[2020-04-01] MEDS: HEPARIN SOD 5,000 UNIT/0.5 ML VIAL SQ SCH ×2 (05:17→14:07)
--- NOTE | 2020-04-01 06:03 | Electrocardiogram Report ---
Test Reason : Blood Pressure : / mmHG Vent. Rate : 069 BPM Atrial Rate : 069 BPM P-R Int : 234 ms QRS Dur : 094 ms QT Int : 392 ms P-R-T Axes : 043 -04 007 degrees QTc Int : 420 ms Sinus rhythm with 1st degree A-V block Otherwise normal ECG When compared with ECG of 25-SEP-2014 09:05, No significant change was found Confirmed by Donte Thompson ([id number]) on 04/01/2020 6:02:42 AM Referred By: Confirmed By:Donte Thompson
[2020-04-01 06:41] LABS: Basophils # (auto) 0.05 K/uL (0-0.2); Basophils % (auto) 0.7 %; Eosinophils # (auto) 0.21 K/uL (0-0.5); Eosinophils % (auto) 2.8 %; Hematocrit (blood only) 39.5 % (37-47); Hemoglobin 12.7 g/dL (12.0-16.0); Immature Granulocytes # (auto) 0.03 K/uL (0.00-0.02); Immature Granulocytes % (auto) 0.4 %; Lymphocytes # (auto) 1.95 K/uL (1.2-3.4); Lymphocytes % (auto) 26.2 %; Mean Corpuscular Hgb Conc 32.2 g/dL (32-36); Mean Corpuscular Volume 93.2 fL (80-100); Mean Platelet Volume 11.1 fL (7.4-10.4); Monocytes # (auto) 0.65 K/uL (0.11-0.59); Monocytes % (auto) 8.7 %; Neutrophils # (auto) 4.56 K/uL (1.4-6.5); Neutrophils % (auto) 61.2 %; Nucleated RBC # (auto) 0.03 K/uL (0-0); Nucleated RBC % (auto) 0.3 %; Platelet Count 180 K/uL (130-400); RDW Coefficient of Variation 13.9 % (11.5-14.5); Red Blood Count 4.24 M/uL (4.2-5.4); White Blood Count 7.45 K/uL (4.8-10.8)
--- NOTE | 2020-04-01 06:55 | Magnetic Resonance Report ---
MRI OF THE BRAIN WITHOUT CONTRAST CLINICAL HISTORY: L leg weakness, ?stroke COMPARISON STUDY: Noncontrast head CT dated 03/31/2020 FINDINGS: Sagittal T1, axial diffusion, proton density and T2 weighted axial, coronal FLAIR, and axial T1-weigh marco images were acquired. No intra or extra-axial mass lesions are visualized Axial diffusion-weighted images reveal a small 7 mm focus of restricted water diffusion within the ri ght posterior valdez radiata.. There is no evidence of ventricular dilatation. Proton density T2-weighted and FLAIR images reveal mild foci of increased T2 signal within the white matter, likely on a small vessel basis. There are no abnormal flow voids. IMPRESSION: 1. Small acute/subacute infarct involving the right valdez radiata. ACT 112: Negative or not required by law. Electronically signed by: Hermilo Nieves M.D. 04/01/2020 6:54 AM
[2020-04-01 07:10] LABS: Estimated Average Glucose 128 mg/dl; Hemoglobin A1C 6.1 % (4.5-5.6)
[2020-04-01 07:11] LABS: BUN Creatinine Ratio 17.6 (10-20); Calcium 9.5 mg/dl (8.5-10.1); Creatinine Clr Calc Pharmacy 39.7 ml/min; Est GFR (African American) 47.1; Est GFR (Non-African American) 40.7; Potassium 3.8 mmol/L (3.5-5.1)
[2020-04-01 07:21] LABS: Thyroid Stimulating Hormone 1.73 uIu/ml (0.300-4.500)
--- NOTE | 2020-04-01 07:29 | Communication Note ---
Date of Service: April 01, 2020 ATTENDING NOTE : MRI OF BRAIN: Small acute/subacute infarct involving the right valdez radiata. pt admitted with stroke like symptoms MRI shows acute /subacute CVA will need dual antiplatelet therapy : on Aspirin 81 mg /added Plavix 75 mg daily statin changed to Lipitor 40 mg daily -for high intensity statin therapy as per guideline LDL 54 with in goal Neurology consulted Annette Michael MD
--- NOTE | 2020-04-01 07:39 | Ultrasound Report ---
BILATERAL CAROTID DOPPLER STUDY HISTORY: Stroke like symptoms COMPARISON: None. TECHNIQUE: Real-time, grayscale, and color Doppler sonography of the carotid arteries was performed. Imaging reviewed in the transverse and longitudinal planes. All measurements were calculated based on NASCET criteria. FINDINGS: Antegrade flow is seen in the bilateral vertebral arteries. The brachial pressures were not obtained. The peak systolic velocity within the right ICA is 63 cm/s. The right systolic ratio is 0.6. The peak systolic velocity within the left ICA is 70 cm/s. The left systolic ratio is 0.8. IMPRESSION: No hemodynamically significant stenosis seen within the carotid arteries. ACT 112: Negative or not required by law. Electronically signed by: Carlos Eduardo Campuzano M.D. 04/01/2020 7:38 AM
[2020-04-01] MEDS: CALCIUM 600MG + VIT D 400 IU TAB PO SCH (07:56)
[2020-04-01] MEDS ORDERED: LOSARTAN POTASSIUM 50 MG TAB PO SCH ×2 (09:00→21:00)
[2020-04-01] MEDS ORDERED: CLOPIDOGREL BISULFATE 75 MG TAB PO SCH (09:00)
[2020-04-01] MEDS ORDERED: ASPIRIN 81 MG ECTAB PO SCH (09:00)
[2020-04-01] MEDS ORDERED: MULTIVITAMIN TAB PO SCH (09:00)
[2020-04-01] MEDS ORDERED: CHOLECALCIFEROL 1,000 UNITS 25 MCG TAB PO SCH (09:00)
[2020-04-01] MEDS ORDERED: PANTOprazole 40 MG TAB PO SCH (09:00)
[2020-04-01] MEDS ORDERED: ATORVASTATIN 40 MG TAB PO SCH (09:00)
[2020-04-01] MEDS ORDERED: OMEGA-3 (PURIFIED FISH OIL) 1 GM CAP PO SCH (09:00)
[2020-04-01] MEDS: BuPROPion SR 150 MG TABCR PO SCH (16:11)
--- NOTE | 2020-04-01 16:13 | Communication Note ---
Date of Service: April 01, 2020 Sharlene James is 79, is right-handed, is a patient of Dr. Frye of the [place] area, has moderate over nourishment, longstanding restless leg syndr ome, history of nocturnal hypoxemia due to obstructive sleep apnea, prediabetes, hypertension, dyslipidemia, anxiety, gastroesophageal reflux, diverticulitis, and stage III renal disease At home she takes atorvastatin ibuprofen, calcium carbonate cholecalciferol, hydrochlorothiazide, losartan, metoprolol, multivitamins, omega-3, pantoprazole, Requip 0.5 mg tablets at bedtime and 2 mg tablets extended release at 5:00 in addition to simvastatin. She apparently was not taking aspirin recently having stopped the medication because of problems with her "kidneys" Very year ago she had an episode of sudden ataxia that passed and was apparently not assessed and was unassociated with vertigo On Monday she developed clumsiness of the left leg with a vaguely defined inability to walk "normally" she waited 24 hours then presented and was admitted to the hospital because of this strokelike episode with exam findings showing some vague clumsiness of the left leg, negative CAT scan, and subsequently normal carotid duplex, apparently normal echo although I am not seen the formal results, and an MRI showing some white matter changes of chronic type and low- grade nature coupled with a single punctate focus of diffusion-weighted imaging positivity consistent with a small infarct in the right centrum semiovale and a good explanation for her current deficits Family history social history and review of systems are all as recorded on multiple provider notes and will not be repeated here Exam reveals blood pressure 143/82 pulse 74 and regular respirations are 19 she is afebrile she is awake alert oriented in 3 spheres moderately over nourished with intact eye movements visual holcomb gross visual acuity facial motility and strength speech and facial sensation. Gait is slightly off balance favoring the left leg but she has no overt spasticity or ataxia facility rapid repetitive motion with the left leg a little down reflexes are perhaps slightly increased on the left but this is pretty subtle and a toe sign is downgoing on that side upper extremity function is normal with no drift pronation tremor or tics or choreiform activity and gross motor testing is normal there is no atrophy no fasciculations and sensory examination is intact all primary modalities without neglect This is likely a primary small vessel event but 1 can never exclude an embolic one from cardiac sources We certainly have no clear-cut source of emboli in the carotids. We cannot do a CT angiographic study because of the renal function and risk for nephropathy At this point I am going to recommend dual antiplatelet therapy with aspirin and Plavix for 21 days and then stopping the aspirin and continue with Plavix alone, and outpatient ZIO Patch which we may arrange when I see her in follow-up in [facility] in about a month I am going to suggest that she could be discharged as she has been seen by physical therapy they can recommend an in-home program which I think is appropriate. I do not think she needs inpatient rehabilitation as when I saw her she was walking the halls with her and doing very well without assistance She should follow-up with us but I think the echocardiogram needs to be reviewed to be sure there is no clear cut cardiac issue before discharging her to home I am going to convey these recommendations to Dr. Bonilla and I discussed them with the patient and her Zain Rojas MD
[2020-04-01] MEDS ORDERED: STROKE PATIENT DISCHARGE STA (16:56)
--- NOTE | 2020-04-01 16:56 | Hospitalist Progress Note ---
Date of Service April 01, 2020 Assessment & Plan (1) Acute lacunar stroke: Present on admission with let arm and leg weakness CT head showed no acute intracranial abnormality MRI of the brain acute /subacute rt internal capsule CVA carotid Doppler : no hemodynamically significant stenosis CTA of head and neck not ordered due to CKD stage 3 appreciate input from neurology pt will continue with dual antiplatelets Aspirin 81 mg daily /Plavix 75 mg daily for 21 days then continue with Plavix 75 mg daily statin changed to Lipitor 40 mg daily for high intensity therapy , goal LDL < 70 Will start on aspirin 81mg stable to be discharged home today follow up with neurology in 1 months , out patient cardiac monitoring -Zio patch will be arranged in clinic (2) Left leg weakness: left sided weakness /hemiplegia due to acute /subacute CVA on rt side out patient physical therapy for gait disturbance HTN cont out pt meds CKD STAGE 3 : cr at approx baseline avoid contrast studies Restless leg syndrome Continue requip DEE Continue Cpap GERD Continue PPI DVT px on heparin subq CODE STATUS full code Disposition discharge home today By [facility] guidelines, a determination that the admission or continued stay is not medically necessary has been made by a member of the UR committee and a physician for this hospital stay, therefore a Code 44 will be completed and the Inpatient admission will be changed to outpatient. Admission and Anticipated Discharge Date Admission Date: March 31, 2020 Subjective Minimum weakness of left foot, no other deficit, no headache no blurred vision Review of Systems Review of Systems: All systems reviewed & are unremarkable except as noted in HPI & below Physical Exam Constitutional: WD/WN, vitals as above Eyes: PERRL, conjunctivae normal, anicteric sclerae ENMT: external ear and nose normal, oropharynx normal Neck: trachea midline, no thyromegaly Respiratory: normal respiratory effort, lungs clear to auscultation Cardiovascular: RRR, no murmur, no edema Gastrointestinal (Abdomen): normal bowel sounds, soft, nontender, no hepatosplenomegaly Musculoskeletal: 4 out of 5 strength on the left lower extremity Skin: no rashes, warm and dry Neurologic: PERRL, EOMI, accommodation nl, no face palsy, no dysarthria 4 out of 5 strength on the left lower extremity Psychiatric: A+Ox3, euthymic affect Results & Data Results & Data ([facility]) Vital Signs (Past 12 Hours) Vital Signs Temp Pulse Pulse Resp BP Pulse Ox 04/01/20 16:00 78 04/01/20 15:22 36.4 C L 74 19 143/82 H 94 04/01/20 11:51 36.2 C L 79 16 133/75 92 04/01/20 09:00 63 04/01/20 07:47 36.6 C 72 16 116/71 91
--- NOTE | 2020-04-01 17:42 | Discharge Summary ---
Date of Service April 01, 2020 Admission HPI Per Admitting Provider 79 yo with PMH of HTN, Obstructive sleep area, restlessness, dyslipidemia, GERD present to ER with left sided weakness. Pt said that yesterday she woke up with left arm and leg weakness. She said that her gait was a little unsteady. Daughter at bedside said that she had some coordination's problem. Her daughter said that she felt something at the bottom of her left feet that felt like walking on a grass. Pt said that in the past she develops numbness in her fingers, but this time she fell something was off. She said that she has restless leg syndrome and the medication does not seem to provide much relief. Daughter said that she did not notice her to have any slurred speech, facial droop, altered mental status and slurred speech. Pt denies any any chest pain, palpitation, dizziness, numbness and SOB. Principal Diagnosis ACUTE /SUBACUTE STROKE Discharge Exam Constitutional WD/WN, vitals as above Eyes PERRL, conjunctivae normal, anicteric sclerae ENMT external ear and nose normal, oropharynx normal Neck trachea midline, no thyromegaly Respiratory normal respiratory effort, lungs clear to auscultation Cardiovascular RRR, no murmur, no edema Gastrointestinal (Abdomen) normal bowel sounds, soft, nontender, no hepatosplenomegaly Skin no rashes, warm and dry Neurologic PERRL, EOMI, accommodation nl, no face palsy, no dysarthria Psychiatric A+Ox3, euthymic affect Discharge Data Allergies Allergy/AdvReac Type Severity Reaction Status Date / Time Iodinated Contrast Media Allergy Unknown IVP DYE Verified 03/31/20 13:09 CAUSED HIVES Consultations 03/31/20 13:29 ED Decision to Admit Stat 03/31/20 16:08 Consult Case Management - Discharge Planning Routine Consult Neurology Routine Ordered Studies 03/31/20 11:26 CT head/brain wo con Stat 03/31/20 14:00 MR brain wo con Stat 03/31/20 16:08 US carotid doppler BI Routine Hospital Course (1) Acute lacunar stroke: Present on admission with let arm and leg weakness CT head showed no acute intracranial abnormality MRI of the brain acute /subacute rt internal capsule CVA carotid Doppler : no hemodynamically significant stenosis CTA of head and neck not ordered due to CKD stage 3 appreciate input from neurology pt will continue with dual antiplatelets Aspirin 81 mg daily /Plavix 75 mg daily for 21 days then continue with Plavix 75 mg daily statin changed to Lipitor 40 mg daily for high intensity therapy , goal LDL < 70 Will start on aspirin 81mg stable to be discharged home today follow up with neurology in 1 months , out patient cardiac monitoring -Zio patch will be arranged in clinic (2) Left leg weakness: left sided weakness /hemiplegia due to acute /subacute CVA on rt side out patient physical therapy for gait disturbance HTN cont out pt meds CKD STAGE 3 : cr at approx baseline avoid contrast studies Restless leg syndrome Continue requip DEE Continue Cpap GERD Continue PPI DVT px on heparin subq CODE STATUS full code Disposition discharge home today By [facility] guidelines, a determination that the admission or continued stay is not medically necessary has been made by a member of the UR committee and a physician for this hospital stay, therefore a Code 44 will be completed and the Inpatient admission will be changed to outpatient. Total Time Total Time Spent Total Time Spent (In Minutes): 35 minutes Total Time Includes: Examination of the Patient, Discharge Planning and Medication Reconciliation Discharge Plan Discharge Items Patient Disposition: Home - Home Health Services Reason For Visit: Stroke like Symptoms Discharge Diagnosis: ACUTE /SUBACUTE STROKE Activity: As commented below Activity Comment: CONTINUE OUT PATIENT PHYSICAL THERAPY Non-emergency contact: Primary Care Provider Call non-emergency contact if: you have any medication questions Follow-up/Referrals: Amelia Frye [Primary Care Provider] - (HOSPITAL FOLLOW UP IN A WEEK ) Zain Rojas MD [Physician] - (NEUROLOGY FOLLOW UP IN A MONTH) Diet: Heart Healthy Addtl Attending Provider Instructions: Risk Factors for Stroke: You can reduce your chances of stroke by working with your medical provider to adopt a healthy lifestyle. Some specific ways to lower your chance of stroke are: * If you are a smoker, now is the time to stop smoking cigarettes * If you are diabetic, improve the control of your blood sugars * Avoid excessive amounts of alcohol * Control high blood pressure * Lose weight if you are overweight * Be sure to lead an active lifestyle * Eat a healthy diet low in salt, cholesterol and fat You should know about other risk factors for stroke that you are unable to control. These include: * Age 55 years or older * Male gender * Certain racial groups: , or / * Family History of Stroke, Mini stroke or Heart Attack * Sickle Cell Disease Follow Up: It is important for you to keep your follow up appointments with your medical provider. Who to Call and When: Medical Emergencies: Call 911 immediately if you experience any of the following warning signs and symptoms of Stroke: * Sudden numbness or weakness of the face, arm or leg, especially on one side of the body * Sudden confusion, trouble speaking or understanding * Sudden trouble seeing in one or both eyes * Sudden trouble walking, dizziness, loss of balance or coordination * Sudden severe headache with no cause Do not delay calling 911 if you experience any warning signs or symptoms of a stroke. Delay in seeking medical attention may affect what treatments can be given to you. WILL NEED CARDIAC MONITORING -ZIO PATCH - please follow up with Neurology in a month NEW MEDICATIONS: TAKE ASPIRIN 81 MG DAILY -WITH FOOD FOR 21 DAYS PLAVIX 75 MG DAILY THESE TWO MEDICATIONS TO PROTECT YOU FROM FUTURE STROKE /PREVENTING BLOOD CLOT FORMATION YOUR CHOLESTEROL MEDICATION IS CHANGED TO LIPITOR 40 MG DAILY TO LOWER YOU CHOLESTEROL -PREVENTING TO FORM BLOCKAGE IN YOUR BLOOD VESSELS CAUSING FUTURE STROKE OR HEART ATTACK Pending Studies at Discharge: Yes Studies:: CARDIAC MONITORING DEVICE /ZIO PATCH Stand-Alone Forms: Medications to Prevent Stroke, [facility], Smoking Cessation Medications and DC Order Prescriptions: New atorvastatin 40 mg Tablet 40 mg PO QAM 30 Days Qty: 30 RF: 0 clopidogrel 75 mg Tablet 75 mg PO QAM 30 Days Qty: 30 RF: 0 aspirin 81 mg Tablet,Delayed Release (Dr/Ec) 81 mg PO QAM 21 Days Qty: 21 RF: 0 Continued calcium carb,lactat-vitamin D3 1 tab PO BID RF: 0 losartan [Cozaar] 100 mg tablet 100 mg PO QAM RF: 0 omega-3 fatty acids [Fish Oil Concentrate] 1,000 mg capsule 1,000 mg PO QAM RF: 0 multivitamin tablet 1 tab PO QAM RF: 0 ropinirole [Requip XL] 2 mg tablet extended release 24 hr 2 mg PO DAILY@1700 RF: 0 ropinirole 0.5 mg tablet 0.5 mg PO HS RF: 0 cholecalciferol (vitamin D3) 1,000 unit capsule 1,000 units PO QAM RF: 0 pantoprazole 40 mg tablet,delayed release (DR/EC) 40 mg PO QAM RF: 0 metoprolol succinate 25 mg tablet extended release 24 hr 12.5 mg PO HS RF: 0 hydrochlorothiazide 12.5 mg Tablet 12.5 mg PO DAILY PRN (Reason: Edema) RF: 0 bupropion HCl (smoking deter) 150 mg tablet extended release 12 hr 150 mg PO QDD RF: 0 Discontinued simvastatin 10 mg tablet 10 mg PO HS RF: 0 Discharge Orders: Discharge Order (Routine); Ordered 04/01/20 Ordered By: Annette Caldwell/Other Patient Handouts: Prediabetes, Diabetes: Meal Planning, A1C Admission Data Admit Date/Time: 03/31/20 15:07 Attending Provider: Annette Michael Admit Provider: Lucas Anderson Primary Care Provider: Amelia Frye Other Providers: Tesfaye Lyons ; Zain Rojas Other Interventions: Discharge Summary Assessment (RN) Last Done: 04/01/20 16:54
--- NOTE | 2020-04-01 17:48 | Pharmacy Report ---
Pharmacist Stroke Counseling - Date of Service April 01, 2020 - Scope: Pharmacy has been consulted to provide medication discharge counseling for this patient admitted with [ischemic stroke] [hemorrhagic stroke] [transient ischemic attack] as per the Pharmacist Discharge Counseling for Stroke Patients Pr otocol. - Medications on Discharge: Home Medications Medication Instructions Recorded Confirmed calcium carb,lactat-vitamin D3 1 tab PO BID 04/05/19 03/31/20 cholecalciferol (vitamin D3) 25 1,000 units PO QAM 04/05/19 03/31/20 mcg (1,000 unit) capsule losartan 100 mg tablet 100 mg PO QAM 04/05/19 03/31/20 multivitamin 1 tab PO QAM 04/05/19 03/31/20 omega-3 fatty acids 1,000 mg 1,000 mg PO QAM 04/05/19 03/31/20 capsule ropinirole 0.5 mg tablet 0.5 mg PO HS tab 04/05/19 03/31/20 ropinirole 2 mg tablet,extended 2 mg PO DAILY@1700 04/05/19 03/31/20 release 24 hr bupropion HCl (smoking deter) 150 mg PO QDD 03/31/20 03/31/20 hydrochlorothiazide 12.5 mg PO DAILY PRN 03/31/20 03/31/20 metoprolol succinate 12.5 mg PO HS 03/31/20 03/31/20 pantoprazole 40 mg PO QAM 03/31/20 03/31/20 New Rx's Medication Instructions Recorded aspirin 81 mg PO QAM 21 Days #21 tab 04/01/20 atorvastatin 40 mg PO QAM 30 Days #30 tab 04/01/20 clopidogrel 75 mg PO QAM 30 Days #30 tab 04/01/20 - Action: The above medications, specifically ones for stroke treatment/prophylaxis, have been reviewed in detail with the patient and/or patient telemarketing sales representative(s) prior to discharge. This includes indication, common adverse reactions, drug interactions, and medication administration. Medication counseling has been employed using the teach-back method to ensure understanding. - Outcome: The patient and/or patient telemarketing sales representative(s) have demonstrated understanding of the medications. Additional comments: Spoke with Mrs. James about her new medications, Aspirin,Clopidogrel, & Atorvastatin. She didn't think there would be any problems getting her prescriptions. She did have her doses of all three medications today. Since she is starting on Lipitor, patient knows to stop taking her Zocor. She did say that she would be having an appointment with her PCP. Thank you for allowing pharmacy to be involved in the care of this patient. Please call [phone] with any additional questions
--- NOTE | 2020-04-01 17:51 | Communication Note ---
Date of Service: April 01, 2020 pt should not be driving due to acute CVA with left sided weakness DMV form will be filled out update given to daughter over phone Annette Michael MD
--- NOTE | 2020-04-01 17:54 | Communication Note ---
Date of Service: April 01, 2020 Code 44 attestation: She is a 79 yo with PMH of HTN, Obstructive sleep area, restlessness, dyslipidemia, GERD present to ER with left sided weakness. Pt said that yesterday she woke up with left arm and leg weakness. She said that her gait was a little unsteady. her Chart , relevant tests and imaging studies reviewed. She was admitted with strokelike symptoms and was evaluated by the neurologist. She has had appropriate and relevant investigations which came out to be unremarkable. Her symptoms resolved and she was able to be discharged today. By CMS guidelines, a determination that the admission or continued stay is not medically necessary has been made by a member of the UR committee and a physician for this hospital stay, therefore a Code 44 will be completed and the Inpatient admission will be changed to outpatient. Dr Tavo Bray(member UR Committee)
--- NOTE | 2020-04-02 11:23 | Communication Note ---
Date of Service: April 02, 2020 pt had acute/subacute CVA ; MRI of brain:Small acute/subacute infarct involving the right valdez radiata. Appreciate input from neurology, patient should not be driving for the next 4-6 weeks Outpatient follow-up with neurology as scheduled, patient will be continue with dual antiplatelets MD Katy Isaac MD
== END 2020-04-01 17:46 | disposition home health service (06) ==
LOC: 2N 10:57 → ED 10:57 → 2N 15:40 → SUATTDRO 22:42

== ENCOUNTER 2021-04-26 13:54 | Inpatient (IN) ==
[2021-04-26] MEDS ORDERED: ONDANSETRON INJ 2 MG/ML 2 ML VIAL IV STA (16:13)
[2021-04-26] MEDS ORDERED: SODIUM CHLORIDE 0.9% 500 ML IV ONE (16:13)
[2021-04-26] MEDS ORDERED: ACETAMINOPHEN 325 MG TAB PO STA (16:14)
--- NOTE | 2021-04-26 16:16 | Emergency Department Note ---
Impression & Plan COVID-19, Abdominal pain, Hypoxia, Nausea ED Provider Note NAME: NITHYA CARRION AGE: 81 SEX: F : 1940 ARRIVES VIA: Walk-In INFORMANT: Patient ED PROVIDER(S): Hood Chavez DO CHIEF COMPLAINT: Covid positive with nausea, diarrhea and right flank pain HPI: Patient is a 81-year-old female who is vaccinated with moderna who presents to the ER who symptoms started around the 17 of this month. She notes that she did test Covid positive. She has had some congestion but no shortness of breath or chest pain. She has a significant amount of nausea. She is intermittently feeling hot and cold. She denies any dysuria urgency or frequency. She has some right flank pain. She does not feel well overall. Her is Covid positive and currently admitted. No other exacerbating or remitting factors. ROS: See above HPI for pertinent positives & negatives. A total of 10 systems reviewed and were otherwise negative. PAST MEDICAL HISTORY:See Below PAST SURGICAL HISTORY:See Below FAMILY HISTORY:See Below SOCIAL HISTORY:See Below HOME MEDICATIONS:See Below ALLERGIES:See Below VITALS:See Below PHYSICAL EXAMINATION: GENERAL: Sitting up in bed, alert, well appearing, well nourished, no distress, non-toxic EYE EXAM: normal conjunctiva. OROPHARYNX: no exudate, no erythema, lips, buccal mucosa, and tongue normal and mucous membranes are moist NECK: supple, no nuchal rigidity, no adenopathy, non-tender LUNGS: Clear to auscultation. Normal chest wall mechanics HEART: no murmurs, S1 normal and S2 normal ABDOMEN: abdomen soft, non-tender, normo-active bowel sounds, no masses, no rebound or guarding. BACK: Back is symmetrical on inspection and there is no deformity, no midline tenderness, no CVA tenderness. SKIN: no rashes and no bruising UPPER EXTREMITIES: upper extremities are grossly normal. LOWER EXTREMITIES: No pitting edema. NEURO EXAM: Normal sensorium, cranial nerves II-XII grossly intact, normal speech, no gross weakness of arms, no gross weakness of legs. MEDICAL DECISION MAKING: Patient is a 81-year-old female with past medical history of stroke, obesity and hypertension hyperlipidemia who is Covid positive the presents the ER for congestion as well as belly pain with nausea. IV was established blood work was obtained. Labs show no significant leukocytosis or anemia. BMP with a mild hy ponatremia of 133. LFTs bilirubin was unremarkable. Lipase was normal. UA was contaminated. Covid was positive. CT of the abdomen pelvis showed no acute pathologies. Chest x-ray was fairly unremarkable. She was slightly hypoxic at 85% on room air. She was placed on nasal cannula. She never complained of any chest pain or shortness of breath and she did not become hypoxic until after the CT of the belly where I would have scanned the chest initially. Patient was updated bedside. She was discussed with the hospitalist. She was given Decadron and admitted for further work-up. She remained on nasal cannula throughout the remainder of her stay. Triage Nursing notes reviewed. Limited review of prior medical records performed Vital Signs: reviewed and remarkable for tachy Differential diagnosis: Differential diagnoses includes but is not limited to gastritis, peptic ulcer disease, GERD, gallbladder disease, pancreatitis, small bowel obstruction, acute coronary syndrome, pericarditis, ischemic bowel, irritable bowel disease, i rritable bowel syndrome, appendicitis, diverticulitis, malignancy, hernia, urinary tract infection, torsion, perforation, trauma, infectious. ER treatment provided: See below Diagnostics interpreted by me: ECG: none Cardiac Monitoring: An order was placed for continuous cardiac monitoring. The m onitor shows a rate of 92 with sinus rhythm. Laboratory studies: As stated above and show below. Imaging studies: Chest x-ray was clean CT abdomen pelvis was fairly unremarkable Consultation(s): Discussed with the hospitalist for further evaluation Procedures: none Critical Care: I have personally spent 31 minutes of critical care time in the direct management of this patient. This includes bedside care, interpretation of diagnostic studies, and testing, discussion with consultants, patient, and family members, and other required patient management activities. This 31 minutes is in excess of all separately billable procedures. Past Med/Surg History Surgical History History of hysterectomy Family History (Updated 05/27/19 @ 14:01 by Gianna Matute PA-C) Mother Myocardial infarction Father Myocardial infarction Brother Obstructive sleep apnea Social History (Updated 05/27/19 @ 14:01 by Gianna Matute PA-C) Smoking Status: Never smoker Tobacco Type: Cigarettes Hx Alcohol Use: No Hx Substance Use: No Preferred Language: Croatian Communication Ability: Effective Environmental Quality Analyst Required: No Beliefs That Will Affect Care: None marital status: Current Living Situation: Spouse Feels Safe at Home: Yes Assistive Devices: Denture - Upper, Denture - Lower and Glasses Allergies Allergies Allergy/AdvReac Type Severity Reaction Status Date / Time Iodinated Contrast Media Allergy Intermediate HIVES--IVP Verified 04/26/21 18:14 DYE Home Meds Home Medications Medication Instructions Recorded Confirmed losartan 100 mg tablet (Cozaar) 100 mg PO QAM 04/05/19 04/26/21 multivitamin 1 tab PO QAM 04/05/19 04/26/21 omega-3 fatty acids 1,000 mg 1,000 mg PO QAM 04/05/19 04/26/21 capsule (Fish Oil Concentrate) ropinirole 0.5 mg tablet 0.5 mg PO HS tab 04/05/19 04/26/21 bupropion HCl (smoking deter) 150 150 mg PO QDD 03/31/20 04/26/21 mg tablet,12 hr sustained-release(smoking deterrent) metoprolol succinate 25 mg 12.5 mg PO HS 03/31/20 04/26/21 tablet,extended release 24 hr pantoprazole 40 mg tablet,delayed 40 mg PO QAM 03/31/20 04/26/21 release clopidogrel 75 mg tablet 75 mg PO DAILY 05/19/20 04/26/21 gabapentin 100 mg capsule 100 mg PO TID 05/19/20 04/26/21 albuterol sulfate 90 mcg/actuation 2 puff INHALATION DIRECTED PRN 04/26/21 04/26/21 aerosol inhaler aspirin 81 mg tablet,delayed 81 mg PO DAILY 04/26/21 04/26/21 release atorvastatin 40 mg tablet 40 mg PO DAILY 04/26/21 04/26/21 calcium carbonate 600 mg (1,500 1 tab PO BID 04/26/21 04/26/21 mg)-vitamin D3 400 unit tablet (Calcium 600 + D(3)) cholecalciferol (vitamin D3) 25 25 mcg PO DAILY 04/26/21 04/26/21 mcg (1,000 unit) capsule (Vitamin D3) dexlansoprazole 60 mg 60 mg PO DAILY 04/26/21 04/26/21 capsule,biphase delayed release (Dexilant) methylprednisolone 4 mg tablet 0 mg PO DAILY 04/26/21 04/26/21 ropinirole 2 mg tablet,extended 2 mg PO QPM 04/26/21 04/26/21 release 24 hr Results & Data (ED) Vital Signs Vital Signs - 24 hr 04/26/21 14:05 04/26/21 17:04 04/26/21 18:41 Temperature 36.6 C Temperature Source Temporal Artery Scan Pulse Rate 98 H Pulse Rate [Right Finger] 85 88 Pulse Rhythm [Right Finger] Respiratory Rate 18 19 16 Respiratory Effort / Characteristics Non-Labored Respiratory Depth Normal Blood Pressure 124/76 Blood Pressure [Right Arm] 139/74 128/80 Blood Pressure Mean 92 Blood Pressure Mean [Right Arm] 95 96 Pulse Oximetry 94 90 85 L Oxygen Delivery Method Room Air Room Air Room Air Sepsis Recent Fever Within 48 Hours No Sepsis New/Unexplained Change in Mental Status No Sepsis Action Taken by Nursing No Action Required 04/26/21 20:03 Temperature Temperature Source Pulse Rate Pulse Rate [Right Finger] 84 Pulse Rhythm [Right Finger] Regular Respiratory Rate 19 Respiratory Effort / Characteristics Respiratory Depth Normal Blood Pressure Blood Pressure [Right Arm] Blood Pressure Mean Blood Pressure Mean [Right Arm] Pulse Oximetry 93 Oxygen Delivery Method Nasal Cannula Sepsis Recent Fever Within 48 Hours Sepsis New/Unexplained Change in Mental Status Sepsis Action Taken by Nursing Laboratory Data Result diagrams: 04/26/21 16:59 04/26/21 16:59 Lab Results 04/26/21 04/26/21 04/26/21 Range/Units 16:25 16:59 16:59 WBC 5.13 (4.8-10.8) K/uL RBC 4.36 (4.2-5.4) M/uL Hgb 12.9 (12.0-16.0) g/dL Hct 39.8 (37-47) % MCV 91.3 (80-100) fL MCH 29.6 (25-34) pg MCHC 32.4 (32-36) g/dL RDW Std Deviation 47.5 H (36.4-46.3) fL RDW Coeff of Andree 14.2 (11.5-14.5) % Plt Count 164 (130-400) K/uL MPV 10.7 H (7.4-10.4) fL Immature Gran % (Auto) 1.2 % Neut % (Auto) 65.4 % Lymph % (Auto) 20.5 % Coles % (Auto) 12.1 % Eos % (Auto) 0.6 % Baso % (Auto) 0.2 % Neut # (Auto) 3.36 (1.4-6.5) K/uL Lymph # (Auto) 1.05 L (1.2-3.4) K/uL Coles # (Auto) 0.62 H (0.11-0.59) K/uL Eos # (Auto) 0.03 (0-0.5) K/uL Baso # (Auto) 0.01 (0-0.2) K/uL Immature Gran # (Auto) 0.06 H (0.00-0.02) K/uL Sodium 133 L (136-145) mmol/L Potassium 4.1 (3.5-5.1) mmol/L Chloride 102 (98-107) mmol/L Carbon Dioxide 22 (21-32) mmol/L Anion Gap 9.0 (3-11) BUN 20 H (7-18) mg/dl Creatinine 1.00 (0.6-1.2) mg/dl Est Cr Clr Drug Dosing Not Reportable Est GFR ( Amer) 62.1 ml/min Est GFR (Non-Af Amer) 53.5 ml/min BUN/Creatinine Ratio 19.8 (10-20) Glucose 96 (70-99) mg/dl Calcium 8.9 (8.5-10.1) mg/dl Magnesium 2.0 (1.8-2.4) mg/dl Total Bilirubin 0.4 (0.2-1) mg/dl AST 18 (15-37) U/L ALT 21 (12-78) U/L Alkaline Phosphatase 75 (45-117) U/L Total Protein 7.3 (6.4-8.2) gm/dl Albumin 2.9 L (3.4-5.0) gm/dl Globulin 4.4 H (2.5-4.0) gm/dl Albumin/Globulin Ratio 0.7 L (0.9-2) Lipase 164 (73-393) U/L Urine Color Dark Yellow Urine Appearance Clear (Clear) Urine pH 6.0 (4.5-7.5) Ur Specific [place] 1.024 (1.000-1.030) Urine Protein 1+ H (Negative) Urine Glucose (UA) Negative (Negative) Urine Ketones 1+ H (Negative) Urine Blood Negative (Negative) Urine Nitrite Negative (Negative) Urine Bilirubin Negative (Negative) Urine Urobilinogen Negative (Negative) Ur Leukocyte Esterase Trace H (Negative) Urine WBC (Auto) 1-5 (0-5) /hpf Urine RBC (Auto) 0-4 (0-4) /hpf U Hyaline Cast (Auto) 0 (0-5) /lpf U Epithel Cells (Auto) >30 H (0-5) /lpf Urine Bacteria (Auto) Negative (Negative) COVID-19 Eval Order SARS-CoV-2 (PCR) (Negative) 04/26/21 04/26/21 Range/Units 19:04 19:04 WBC (4.8-10.8) K/uL RBC (4.2-5.4) M/uL Hgb (12.0-16.0) g/dL Hct (37-47) % MCV (80-100) fL MCH (25-34) pg MCHC (32-36) g/dL RDW Std Deviation (36.4-46.3) fL RDW Coeff of Andree (11.5-14.5) % Plt Count (130-400) K/uL MPV (7.4-10.4) fL Immature Gran % (Auto) % Neut % (Auto) % Lymph % (Auto) % Coles % (Auto) % Eos % (Auto) % Baso % (Auto) % Neut # (Auto) (1.4-6.5) K/uL Lymph # (Auto) (1.2-3.4) K/uL Coles # (Auto) (0.11-0.59) K/uL Eos # (Auto) (0-0.5) K/uL Baso # (Auto) (0-0.2) K/uL Immature Gran # (Auto) (0.00-0.02) K/uL Sodium (136-145) mmol/L Potassium (3.5-5.1) mmol/L Chloride (98-107) mmol/L Carbon Dioxide (21-32) mmol/L Anion Gap (3-11) BUN (7-18) mg/dl Creatinine (0.6-1.2) mg/dl Est Cr Clr Drug Dosing Est GFR ( Amer) ml/min Est GFR (Non-Af Amer) ml/min BUN/Creatinine Ratio (10-20) Glucose (70-99) mg/dl Calcium (8.5-10.1) mg/dl Magnesium (1.8-2.4) mg/dl Total Bilirubin (0.2-1) mg/dl AST (15-37) U/L ALT (12-78) U/L Alkaline Phosphatase (45-117) U/L Total Protein (6.4-8.2) gm/dl Albumin (3.4-5.0) gm/dl Globulin (2.5-4.0) gm/dl Albumin/Globulin Ratio (0.9-2) Lipase (73-393) U/L Urine Color Urine Appearance (Clear) Urine pH (4.5-7.5) Ur Specific [place] (1.000-1.030) Urine Protein (Negative) Urine Glucose (UA) (Negative) Urine Ketones (Negative) Urine Blood (Negative) Urine Nitrite (Negative) Urine Bilirubin (Negative) Urine Urobilinogen (Negative) Ur Leukocyte Esterase (Negative) Urine WBC (Auto) (0-5) /hpf Urine RBC (Auto) (0-4) /hpf U Hyaline Cast (Auto) (0-5) /lpf U Epithel Cells (Auto) (0-5) /lpf Urine Bacteria (Auto) (Negative) COVID-19 Eval Order Covid19 at [facility] SARS-CoV-2 (PCR) POSITIVE A* (Negative) Administered Medications Doxycycline Hyclate 100 mg/ (Dextrose) 110 mls @ 50 mls/hr IV NOW STA Stop: 04/26/21 21:47 Last Admin: 04/26/21 20:46 Dose: 50 mls/hr Documented by: [id number] Discontinued Medications Acetaminophen (Acetaminophen 325 Mg Tab) 650 mg PO NOW STA Stop: 04/26/21 16:15 Last Admin: 04/26/21 17:37 Dose: 650 mg Documented by: [id number] Sodium Chloride (Nss) 500 mls @ 999 mls/hr IV .Q31M ONE Stop: 04/26/21 16:43 Last Infusion: 04/26/21 17:34 Dose: 0 mls/hr Documented by: [id number] Admin: 04/26/21 16:58 Dose: 999 mls/hr Documented by: [id number] Promethazine HCl 12.5 mg/ (Sodium Chloride) 50.5 mls @ 202 mls/hr IV NOW STA Stop: 04/26/21 19:49 Last Infusion: 04/26/21 20:35 Dose: 0 mls/hr Documented by: [id number] Admin: 04/26/21 20:03 Dose: 202 mls/hr Documented by: [id number] Dexamethasone 6 mg/ Syringe 1.5 mls @ 1 mls/min IV ONE ONE Stop: 04/26/21 19:37 Last Admin: 04/26/21 20:46 Dose: 1 mls/min Documented by: [id number] Levalbuterol HCl (Levalbuterol Tartrate 15 Gm Hfa.Aer.Ad) 2 puffs INH NOW STA Stop: 04/26/21 19:46 Last Admin: 04/26/21 21:20 Dose: Not Given Documented by: [id number] Ondansetron HCl (Ondansetron Inj 2 Mg/Ml 2 Ml Vial) 4 mg IV NOW STA Stop: 04/26/21 16:14 Last Admin: 04/26/21 16:58 Dose: 4 mg Documented by: [id number] Promethazine HCl (Promethazine 12.5 Mg/50.5 Ml Nss) Confirm Administered Dose 12.5 mg IV .STK-MED ONE Stop: 04/26/21 19:48 Last Admin: 04/26/21 20:04 Dose: Not Given Documented by: [id number] Imaging Data Radiologist's Impression: Chest X-Ray 04/26/21 16:13 XR chest 1V portable CLINICAL HISTORY: Congestion. COMPARISON STUDY: Chest radiograph March 31, 2020. FINDINGS: Lung volumes are normal. Right basilar opacity favors atelectasis.. There is no pneumothorax or pleural effusion. Cardiac size is normal. Mediastinal contours are normal. There is no evidence for pulmonary edema. IMPRESSION: 1. No acute cardiopulmonary findings. 2. Right basilar opacity which favors atelectasis. ACT 112: Negative or not required by law. Electronically signed by: Jemal Kent M.D. 04/26/2021 4:39 PM Abdomen/Pelvis CT 04/26/21 16:14 CT OF THE ABDOMEN AND PELVIS WITHOUT CONTRAST CLINICAL HISTORY: Right flank pain. COMPARISON STUDY: CT of the abdomen and pelvis September 25, 2014. TECHNIQUE: Axial images of the abdomen and pelvis were obtained without IV contrast. Images were reviewed in the axial, sagittal, and coronal planes. Automated exposure control was utilized for the study. A dose lowering technique was utilized adhering to the principles of ALARA. FINDINGS: Multifocal groundglass opacities are noted within visualized portions of the lower lungs. No renal calculi are present. There is no hydronephrosis. Evaluation for ureteral calculi is difficult given radiodensities within the right adnexa however no convincing ureteral calculi are identified. These radiodensities are unchanged since CT of September 25, 2014. Colonic diverticulosis is noted without evidence for acute diverticulitis. There is no evidence for acute appendicitis. Evaluation of the abdomen and pelvis is suboptimal on this unenhanced exam. There is a small hiatal hernia. There is a lateral segment hepatic cyst. No biliary or pancreatic ductal dilatation is present. There is no evidence for a bowel obstruction. No ascites is present. No acute fracture or suspicious lesion is identified within the visualized skeletal structures. IMPRESSION: 1. No urinary calculi or hydronephrosis. However, evaluation for distal right ureteral calculi difficult given numerous radiodensities within the right he mipelvis. These radiodensities are unchanged since prior CT and likely iatrogenic. 2. No acute process within the abdomen or pelvis on unenhanced exam. 3. Colonic diverticulosis without evidence for acute diverticulitis. 4. No evidence for acute appendicitis. No bowel obstruction. ACT 112: Negative or not required by law. Electronically signed by: Jemal Kent M.D. 04/26/2021 6:22 PM Discharge Plan Visit Data Chief Complaint: Abdominal Pain Stated Complaint: COVID POSITIVE/ABD PAIN/HEADACHE/DIARRHEA ED Provider: Hood Chavez Discharge Problem: COVID-19, Abdominal pain, Hypoxia, Nausea Discharge Instructions Interventions: ED Discharge Assessment Last Done: 04/26/21 21:19 Forms Stand Alone Forms: [employer] Prescriptions Prescriptions: No Action clopidogrel 75 mg tablet 75 mg PO DAILY RF: 0 gabapentin 100 mg capsule 100 mg PO TID RF: 0 losartan [Cozaar] 100 mg tablet 100 mg PO QAM RF: 0 omega-3 fatty acids [Fish Oil Concentrate] 1,000 mg capsule 1,000 mg PO QAM RF: 0 multivitamin tablet 1 tab PO QAM RF: 0 ropinirole 0.5 mg tablet 0.5 mg PO HS RF: 0 pantoprazole 40 mg tablet,delayed release (DR/EC) 40 mg PO QAM RF: 0 metoprolol succinate 25 mg tablet extended release 24 hr 12.5 mg PO HS RF: 0 bupropion HCl (smoking deter) 150 mg tablet extended release 12 hr 150 mg PO QDD RF: 0 atorvastatin 40 mg tablet 40 mg PO DAILY RF: 0 methylprednisolone 4 mg tablet 0 mg PO DAILY RF: 0 aspirin 81 mg Tablet,Delayed Release (Dr/Ec) 81 mg PO DAILY RF: 0 albuterol sulfate 90 mcg/actuation HFA aerosol inhaler 2 puff INHALATION DIRECTED PRN (Reason: Shortness Of Breath) RF: 0 cholecalciferol (vitamin D3) [Vitamin D3] 25 mcg (1,000 unit) Capsule 25 mcg PO DAILY RF: 0 calcium carbonate-vitamin D3 [Calcium 600 + D(3)] 600 mg(1,500mg) -400 unit Tablet 1 tab PO BID RF: 0 ropinirole 2 mg Tablet Extended Release 24 Hr 2 mg PO QPM RF: 0 Dexilant 60 mg capsule,biphase delayed releas 60 mg PO DAILY RF: 0 Referrals Referrals: Amelia Frye [Primary Care Provider] - Discharge Problem: Abdominal pain Qualifiers: Abdominal location: unspecified location Qualified Code(s): R10.9 - Unspecified abdominal pain
--- NOTE | 2021-04-26 16:41 | XRay Report ---
XR chest 1V portable CLINICAL HISTORY: Congestion. COMPARISON STUDY: Chest radiograph March 31, 2020. FINDINGS: Lung volumes are normal. Right basilar opacity favors atelectasis.. There is no pneumothora x or pleural effusion. Cardiac size is normal. Mediastinal contours are normal. There is no evidence for pulmonary edema. IMPRESSION: 1. No acute cardiopulmonary findings. 2. Right basilar opacity which favors atelectasis. ACT 112: Negative or not required by law. Electronically signed by: Jemal Kent M.D. 04/26/2021 4:39 PM
[2021-04-26 16:51] LABS: Appearance Urine Clear (Clear); Bacteria Urine Automated Negative (Negative); Bilirubin Urine Negative (Negative); Blood Urine Negative (Negative); Color Urine Dark Yellow; Epithelial Cell Urine Auto >30 /lpf (0-5); Glucose Urine UA Negative (Negative); Ketones Urine 1+ (Negative); Leukocyte Esterase Urine Trace (Negative); Nitrite Urine Negative (Negative); Protein Urine 1+ (Negative); RBC Urine Automated 0-4 /hpf (0-4); Specific Gravity Urine 1.024 (1.000-1.030); Urobilinogen Urine Negative (Negative)
[2021-04-26 17:03] LABS: Basophils # (auto) 0.01 K/uL (0-0.2); Basophils % (auto) 0.2 %; Eosinophils # (auto) 0.03 K/uL (0-0.5); Eosinophils % (auto) 0.6 %; Hematocrit (blood only) 39.8 % (37-47); Hemoglobin 12.9 g/dL (12.0-16.0); Immature Granulocytes # (auto) 0.06 K/uL (0.00-0.02); Immature Granulocytes % (auto) 1.2 %; Lymphocytes # (auto) 1.05 K/uL (1.2-3.4); Lymphocytes % (auto) 20.5 %; Mean Corpuscular Hemoglobin 29.6 pg (25-34); Mean Corpuscular Hgb Conc 32.4 g/dL (32-36); Mean Corpuscular Volume 91.3 fL (80-100); Mean Platelet Volume 10.7 fL (7.4-10.4); Monocytes # (auto) 0.62 K/uL (0.11-0.59); Monocytes % (auto) 12.1 %; Neutrophils # (auto) 3.36 K/uL (1.4-6.5); Neutrophils % (auto) 65.4 %; Platelet Count 164 K/uL (130-400); RDW Coefficient of Variation 14.2 % (11.5-14.5); RDW Standard Deviation 47.5 fL (36.4-46.3); Red Blood Count 4.36 M/uL (4.2-5.4); White Blood Count 5.13 K/uL (4.8-10.8)
[2021-04-26 17:12] LABS: Cast Urine Automated 0 /lpf (0-5)
[2021-04-26 17:22] LABS: Alanine Aminotransferase 21 U/L (12-78); Albumin Level 2.9 gm/dl (3.4-5.0); Aspartate Aminotransferase 18 U/L (15-37); BUN Creatinine Ratio 19.8 (10-20); Blood Urea Nitrogen 20 mg/dl (7-18); Calcium 8.9 mg/dl (8.5-10.1); Carbon Dioxide 22 mmol/L (21-32); Chloride 102 mmol/L (98-107); Est GFR (African American) 62.1 ml/min; Est GFR (Non-African American) 53.5 ml/min; Glucose 96 mg/dl (70-99); Lipase 164 U/L (73-393); Potassium 4.1 mmol/L (3.5-5.1); Sodium 133 mmol/L (136-145)
[2021-04-26 17:25] LABS: Albumin Globulin Ratio 0.7 (0.9-2); Alkaline Phosphatase 75 U/L (45-117); Bilirubin,Total 0.4 mg/dl (0.2-1); Globulin 4.4 gm/dl (2.5-4.0); Total Protein 7.3 gm/dl (6.4-8.2)
--- NOTE | 2021-04-26 18:24 | CT Scan Report ---
CT OF THE ABDOMEN AND PELVIS WITHOUT CONTRAST CLINICAL HISTORY: Right flank pain. COMPARISON STUDY: CT of the abdomen and pelvis September 25, 2014. TECHNIQUE: Axial images of the abdomen and pelvis were obtained without IV contrast. Images were revi ewed in the axial, sagittal, and coronal planes. Automated exposure control was utilized for the cheyanne dy. A dose lowering technique was utilized adhering to the principles of ALARA. FINDINGS: Multifocal groundglass opacities are noted within visualized portions of the lower lungs. N o renal calculi are present. There is no hydronephrosis. Evaluation for ureteral calculi is difficult given radiodensities within the right adnexa however no convincing ureteral calculi are identified. These radiodensities are unchanged since CT of September 25, 2014. Colonic diverticulosis is noted withou t evidence for acute diverticulitis. There is no evidence for acute appendicitis. Evaluation of the a bdomen and pelvis is suboptimal on this unenhanced exam. There is a small hiatal hernia. There is a l ateral segment hepatic cyst. No biliary or pancreatic ductal dilatation is present. There is no evide nce for a bowel obstruction. No ascites is present. No acute fracture or suspicious lesion is identif ied within the visualized skeletal structures. IMPRESSION: 1. No urinary calculi or hydronephrosis. However, evaluation for distal right ureteral calculi diffic ult given numerous radiodensities within the right hemipelvis. These radiodensities are unchanged sin ce prior CT and likely iatrogenic. 2. No acute process within the abdomen or pelvis on unenhanced exam. 3. Colonic diverticulosis without evidence for acute diverticulitis. 4. No evidence for acute appendicitis. No bowel obstruction. ACT 112: Negative or not required by law. Electronically signed by: Jemal Kent M.D. 04/26/2021 6:22 PM
[2021-04-26] MEDS ORDERED: PROMETHAZINE HCL 12.5 MG in SODIUM CHLORIDE 0.9% 50 ML IV STA (19:35)
--- NOTE | 2021-04-26 19:35 | History & Physical Report ---
Date of Service April 26, 2021 Assessment & Plan (1) Acute hypoxemic respiratory failure: Plan: Secondary to severe COVID-19 pneumonia Superimposed bacterial infection No overt sepsis for now hypertension, slightly elevated secondary discomfort/distress from restless leg syndrome hx CVA breast cancer status post surgery, currently in remission Hyperglycemia, possible prediabetes with hemoglobin A1c all 6.03 October 2020 past tobacco abuse Medical telemetry Supplemental O2 Decadron and Remdesivir for severe COVID-19 pneumonia. (Patient agreeable to first doses of both medications. Patient hesitant about additional steroid Rx following unpleasant experience with Medrol Dosepak prescribed by PCP.) Doxycycline for superimposed bacterial pulmonary infection Pulmonary consult if without improvement. Facilitate Requip for patient's intolerable RLS symptoms. DVT prophylaxis per Lovenox subcu Full code Patient daughter requesting updates from providers. Ms. Ting Madden, contact #[phone]. Total critical care time was 45 minutes. Text document was generated using [employer] voice recognition software. It may contain grammatical or spelling errors. Kindly contact undersigned for clarification of any documentation item in question. History of Present Illness Chief Complaint: Abdominal pain, Covid positive Primary Care Provider: Amelia Frye History obtained from patient, family, and records. Medical history significant for hypertension, CVA, breast cancer status post surgery, DEE (currently not compliant secondary to machine recall), restless leg syndrome/essential tremors as per patient, past tobacco abuse. Last confinement March 2020 for acute/subacute stroke. MRI of the brain showed acute/subacute right internal capsule CVA. Patient discharged on dual antiplatelet therapy. Last week patient noted to have dry cough symptoms later noted to be junky and productive of yellow sputum. No chest pain, no S OB. Completed COVID-19 vaccination. Patient was caring for who is currently confined at [facility] for COVID-19 pneumonia. Patient had a positive COVID-19 home kit test last week. Patient prescribed Medrol course by PCP "which tore me apart". Achy right-sided abdominal pain with diarrhea symptoms. Poor appetite. O2 sats 85 on room air at some point during ER stay. 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 Allergies Allergy/AdvReac Type Severity Reaction Status Date / Time Iodinated Contrast Media Allergy Intermediate HIVES--IVP Verified 04/26/21 18:14 DYE Home Medications Medication Instructions Recorded Confirmed Type losartan 100 mg tablet (Cozaar) 100 mg PO QAM 04/05/19 04/26/21 History multivitamin 1 tab PO QAM 04/05/19 04/26/21 History omega-3 fatty acids 1,000 mg 1,000 mg PO QAM 04/05/19 04/26/21 History capsule (Fish Oil Concentrate) ropinirole 0.5 mg tablet 0.5 mg PO HS tab 04/05/19 04/26/21 History bupropion HCl (smoking deter) 150 150 mg PO QDD 03/31/20 04/26/21 History mg tablet,12 hr sustained-release(smoking deterrent) metoprolol succinate 25 mg 12.5 mg PO HS 03/31/20 04/26/21 History tablet,extended release 24 hr pantoprazole 40 mg tablet,delayed 40 mg PO QAM 03/31/20 04/26/21 History release clopidogrel 75 mg tablet 75 mg PO DAILY 05/19/20 04/26/21 History gabapentin 100 mg capsule 100 mg PO TID 05/19/20 04/26/21 History albuterol sulfate 90 mcg/actuation 2 puff INHALATION DIRECTED PRN 04/26/21 04/26/21 History aerosol inhaler aspirin 81 mg tablet,delayed 81 mg PO DAILY 04/26/21 04/26/21 History release atorvastatin 40 mg tablet 40 mg PO DAILY 04/26/21 04/26/21 History calcium carbonate 600 mg (1,500 1 tab PO BID 04/26/21 04/26/21 History mg)-vitamin D3 400 unit tablet (Calcium 600 + D(3)) cholecalciferol (vitamin D3) 25 25 mcg PO DAILY 04/26/21 04/26/21 History mcg (1,000 unit) capsule (Vitamin D3) dexlansoprazole 60 mg 60 mg PO DAILY 04/26/21 04/26/21 History capsule,biphase delayed release (Dexilant) methylprednisolone 4 mg tablet 0 mg PO DAILY 04/26/21 04/26/21 History ropinirole 2 mg tablet,extended 2 mg PO QPM 04/26/21 04/26/21 History release 24 hr Past Med/Surg History Surgical History History of hysterectomy Family History (Updated 05/27/19 @ 14:01 by Gianna Matute PA-C) Mother Myocardial infarction Father Myocardial infarction Brother Obstructive sleep apnea Social History (Updated 05/27/19 @ 14:01 by Gianna Matute PA-C) Smoking Status: Never smoker Tobacco Type: Cigarettes Hx Alcohol Use: No Hx Substance Use: No Preferred Language: Lebanese Communication Ability: Effective Packing Attendant Required: No Beliefs That Will Affect Care: Confucianism marital status: Current Living Situation: Spouse Other Information That Helps Us Care for You: No Feels Safe at Home: Yes Safety Concerns: Feels Safe At This Time Assistive Devices: None Assistive Devices Comment: currently but not at home Review of Systems Review of Systems: As per HPI, all 10 systems reviewed, all other ROS negative Physical Exam Physical Exam: GENERAL: uncomfortable, obese, tremulous, wane, no respiratory distress SKIN: Normal color, warm HEENT: [place] palpebral conjunctivae, no ptosis, dry buccal mucosa, nasal cannula in place NECK : Supple, short neck, no tenderness CHEST : Decreased breath sounds,, no tenderness HEART : RRR, no obvious murmurs ABDOMEN: Some distention, minimal right-sided abdominal tenderness EXTREMITIES : Minimal LE swelling, no LE tenderness, no other conspicuous deformities noted NEUROLOGIC : Coherent, no facial asymmetry, tremulous, no other gross focality Results & Data Results & Data ([facility]) Vital Signs (Past 12 Hours) Vital Signs Temp Pulse Pulse Resp BP BP Pulse Ox 04/26/21 18:41 88 16 128/80 85 L 04/26/21 17:04 85 19 139/74 90 04/26/21 14:05 36.6 C 98 H 18 124/76 94 Laboratory Results Laboratory Results WBC 5.13 K/uL (4.8-10.8) 04/26/21 16:59 RBC 4.36 M/uL (4.2-5.4) 04/26/21 16:59 Hgb 12.9 g/dL (12.0-16.0) 04/26/21 16:59 Hct 39.8 % (37-47) 04/26/21 16:59 MCV 91.3 fL (80-100) 04/26/21 16:59 MCH 29.6 pg (25-34) 04/26/21 16:59 MCHC 32.4 g/dL (32-36) 04/26/21 16:59 RDW Std Deviation 47.5 fL (36.4-46.3) H 04/26/21 16:59 RDW Coeff of Andree 14.2 % (11.5-14.5) 04/26/21 16:59 Plt Count 164 K/uL (130-400) 04/26/21 16:59 MPV 10.7 fL (7.4-10.4) H 04/26/21 16:59 Immature Gran % (Auto) 1.2 % 04/26/21 16:59 Neut % (Auto) 65.4 % 04/26/21 16:59 Lymph % (Auto) 20.5 % 04/26/21 16:59 Dickson % (Auto) 12.1 % 04/26/21 16:59 Eos % (Auto) 0.6 % 04/26/21 16:59 Baso % (Auto) 0.2 % 04/26/21 16:59 Neut # (Auto) 3.36 K/uL (1.4-6.5) 04/26/21 16:59 Lymph # (Auto) 1.05 K/uL (1.2-3.4) L 04/26/21 16:59 Dickson # (Auto) 0.62 K/uL (0.11-0.59) H 04/26/21 16:59 Eos # (Auto) 0.03 K/uL (0-0.5) 04/26/21 16:59 Baso # (Auto) 0.01 K/uL (0-0.2) 04/26/21 16:59 Immature Gran # (Auto) 0.06 K/uL (0.00-0.02) H 04/26/21 16:59 Sodium 133 mmol/L (136-145) L 04/26/21 16:59 Potassium 4.1 mmol/L (3.5-5.1) 04/26/21 16:59 Chloride 102 mmol/L (98-107) 04/26/21 16:59 Carbon Dioxide 22 mmol/L (21-32) 04/26/21 16:59 Anion Gap 9.0 (3-11) 04/26/21 16:59 BUN 20 mg/dl (7-18) H 04/26/21 16:59 Creatinine 1.00 mg/dl (0.6-1.2) 04/26/21 16:59 Est Cr Clr Drug Dosing Not Reportable 04/26/21 16:59 Est GFR ( Amer) 62.1 ml/min 04/26/21 16:59 Est GFR (Non-Af Amer) 53.5 ml/min 04/26/21 16:59 BUN/Creatinine Ratio 19.8 (10-20) 04/26/21 16:59 Glucose 96 mg/dl (70-99) 04/26/21 16:59 Calcium 8.9 mg/dl (8.5-10.1) 04/26/21 16:59 Total Bilirubin 0.4 mg/dl (0.2-1) 04/26/21 16:59 AST 18 U/L (15-37) 04/26/21 16:59 ALT 21 U/L (12-78) 04/26/21 16:59 Alkaline Phosphatase 75 U/L (45-117) 04/26/21 16:59 Total Protein 7.3 gm/dl (6.4-8.2) 04/26/21 16:59 Albumin 2.9 gm/dl (3.4-5.0) L 04/26/21 16:59 Globulin 4.4 gm/dl (2.5-4.0) H 04/26/21 16:59 Albumin/Globulin Ratio 0.7 (0.9-2) L 04/26/21 16:59 Lipase 164 U/L (73-393) 04/26/21 16:59 Urine Color Dark Yellow 04/26/21 16:25 Urine Appearance Clear (Clear) 04/26/21 16:25 Urine pH 6.0 (4.5-7.5) 04/26/21 16:25 Ur Specific [place] 1.024 (1.000-1.030) 04/26/21 16:25 Urine Protein 1+ (Negative) H 04/26/21 16:25 Urine Glucose (UA) Negative (Negative) 04/26/21 16:25 Urine Ketones 1+ (Negative) H 04/26/21 16:25 Urine Blood Negative (Negative) 04/26/21 16:25 Urine Nitrite Negative (Negative) 04/26/21 16:25 Urine Bilirubin Negative (Negative) 04/26/21 16:25 Urine Urobilinogen Negative (Negative) 04/26/21 16:25 Ur Leukocyte Esterase Trace (Negative) H 04/26/21 16:25 Urine WBC (Auto) 1-5 /hpf (0-5) 04/26/21 16:25 Urine RBC (Auto) 0-4 /hpf (0-4) 04/26/21 16:25 U Hyaline Cast (Auto) 0 /lpf (0-5) 04/26/21 16:25 U Epithel Cells (Auto) >30 /lpf (0-5) H 04/26/21 16:25 Urine Bacteria (Auto) Negative (Negative) 04/26/21 16:25 COVID-19 Eval Order Covid19 at [facility] 04/26/21 19:04 Impressions Chest X-Ray 04/26/21 16:13 XR chest 1V portable CLINICAL HISTORY: Congestion. COMPARISON STUDY: Chest radiograph March 31, 2020. FINDINGS: Lung volumes are normal. Right basilar opacity favors atelectasis.. There is no pneumothorax or pleural effusion. Cardiac size is normal. Mediastinal contours are normal. There is no evidence for pulmonary edema. IMPRESSION: 1. No acute cardiopulmonary findings. 2. Right basilar opacity which favors atelectasis. ACT 112: Negative or not required by law. Electronically signed by: Jemal Kent M.D. 04/26/2021 4:39 PM Abdomen/Pelvis CT 04/26/21 16:14 CT OF THE ABDOMEN AND PELVIS WITHOUT CONTRAST CLINICAL HISTORY: Right flank pain. COMPARISON STUDY: CT of the abdomen and pelvis September 25, 2014. TECHNIQUE: Axial images of the abdomen and pelvis were obtained without IV contrast. Images were reviewed in the axial, sagittal, and coronal planes. Automated exposure control was utilized for the study. A dose lowering technique was utilized adhering to the principles of ALARA. FINDINGS: Multifocal groundglass opacities are noted within visualized portions of the lower lungs. No renal calculi are present. There is no hydronephrosis. Evaluation for ureteral calculi is difficult given radiodensities within the right adnexa however no convincing ureteral calculi are identified. These radiodensities are unchanged since CT of September 25, 2014. Colonic diverticulosis is noted without evidence for acute diverticulitis. There is no evidence for acute appendicitis. Evaluation of the abdomen and pelvis is suboptimal on this unenhanced exam. There is a small hiatal hernia. There is a lateral segment hepatic cyst. No biliary or pancreatic ductal dilatation is present. There is no evidence for a bowel obstruction. No ascites is present. No acute fracture or suspicious lesion is identified within the visualized skeletal structures. IMPRESSION: 1. No urinary calculi or hydronephrosis. However, evaluation for distal right ureteral calculi difficult given numerous radiodensities within the right hemipelvis. These radiodensities are unchanged since prior CT and likely iatrogenic. 2. No acute process within the abdomen or pelvis on unenhanced exam. 3. Colonic diverticulosis without evidence for acute diverticulitis. 4. No evidence for acute appendicitis. No bowel obstruction. ACT 112: Negative or not required by law. Electronically signed by: Jemal Kent M.D. 04/26/2021 6:22 PM
[2021-04-26] MEDS ORDERED: dexAMETHasone 6 MG in SYRINGE 0 ML IV ONE (19:36)
[2021-04-26] MEDS ORDERED: DOXYCYCLINE HYCLATE 100 MG in DEXTROSE 5% 100 ML IV STA (19:36)
[2021-04-26] MEDS ORDERED: LEVALBUTEROL TARTRATE 15 GM HFA.AER.AD INH STA (19:45)
[2021-04-26] MEDS ORDERED: ROPINIROLE 2 MG PO SCH (19:45)
[2021-04-26] MEDS ORDERED: PROMETHAZINE 12.5 MG/50.5 ML NSS IV ONE (19:47)
[2021-04-26] MEDS ORDERED: SODIUM CHLORIDE 0.9% 1000ML 1,000 ML IV ONE (19:48)
[2021-04-26] MEDS ORDERED: rOPINIRole HCL 1 MG TABLET PO STA (21:15)
[2021-04-26] MEDS ORDERED: LEVALBUTEROL TARTRATE 15 GM HFA.AER.AD INH PRN (21:57)
[2021-04-26] MEDS ORDERED: traMADol HCL 50 MG TABLET PO PRN (21:57)
[2021-04-26] MEDS ORDERED: PROMETHAZINE HCL 12.5 MG in SODIUM CHLORIDE 0.9% 50 ML IV PRN (21:57)
[2021-04-26] MEDS ORDERED: ACETAMINOPHEN 325 MG TAB PO PRN (21:57)
[2021-04-26] MEDS ORDERED: LORazepam 0.5 MG/1 ML VIAL IV STA (22:16)
[2021-04-26] MEDS ORDERED: LORazepam 0.5 MG/1 ML VIAL IV PRN (22:28)
[2021-04-26] MEDS: traMADol HCL 50 MG TABLET PO PRN (22:38)
[2021-04-26] MEDS: METOPROLOL SUCC 25MG EXT REL TAB PO SCH (23:06)
[2021-04-26] MEDS: rOPINIRole HCL 0.25 MG TABLET PO SCH (23:06)
[2021-04-26] MEDS: HEPARIN SOD 5,000 UNIT/0.5 ML VIAL SQ SCH (23:07)
[2021-04-26 23:27] LABS: Thyroid Stimulating Hormone 0.428 uIu/ml (0.300-4.500)
[2021-04-27] MEDS: HEPARIN SOD 5,000 UNIT/0.5 ML VIAL SQ SCH ×3 (06:18→22:16)
[2021-04-27 07:25] LABS: Hematocrit (blood only) 40.7 % (37-47); Hemoglobin 13.1 g/dL (12.0-16.0); Mean Corpuscular Hemoglobin 29.4 pg (25-34); Mean Corpuscular Hgb Conc 32.2 g/dL (32-36); Mean Corpuscular Volume 91.5 fL (80-100); Mean Platelet Volume 11.2 fL (7.4-10.4); Platelet Count 166 K/uL (130-400); RDW Coefficient of Variation 14.1 % (11.5-14.5); RDW Standard Deviation 47.6 fL (36.4-46.3); Red Blood Count 4.45 M/uL (4.2-5.4); White Blood Count 4.98 K/uL (4.8-10.8)
[2021-04-27 07:46] LABS: Basophils # (auto) 0.01 K/uL (0-0.2); Basophils % (auto) 0.2 %; Immature Granulocytes # (auto) 0.08 K/uL (0.00-0.02); Immature Granulocytes % (auto) 1.6 %; Lymphocytes # (auto) 0.73 K/uL (1.2-3.4); Lymphocytes % (auto) 14.7 %; Monocytes # (auto) 0.31 K/uL (0.11-0.59); Monocytes % (auto) 6.2 %; Neutrophils # (auto) 3.85 K/uL (1.4-6.5); Neutrophils % (auto) 77.3 %
[2021-04-27 07:57] LABS: Albumin Level 2.7 gm/dl (3.4-5.0); BUN Creatinine Ratio 17.8 (10-20); C Reactive Protein 4.96 mg/dl (0-0.29); Calcium 9.2 mg/dl (8.5-10.1); Creatinine Clr Calc Pharmacy 49.4 ml/min; Est GFR (African American) 63.6 ml/min; Est GFR (Non-African American) 54.9 ml/min; Potassium 4.5 mmol/L (3.5-5.1)
[2021-04-27 08:00] LABS: Albumin Globulin Ratio 0.6 (0.9-2); Bilirubin,Total 0.4 mg/dl (0.2-1); Globulin 4.4 gm/dl (2.5-4.0); Total Protein 7.1 gm/dl (6.4-8.2)
[2021-04-27] MEDS: CLOPIDOGREL BISULFATE 75 MG TAB PO SCH (09:40)
[2021-04-27] MEDS: ASPIRIN 81 MG ECTAB PO SCH (09:42)
[2021-04-27] MEDS: ATORVASTATIN 40 MG TAB PO SCH (09:42)
[2021-04-27] MEDS: PANTOprazole 40 MG TAB PO SCH (09:43)
[2021-04-27] MEDS: MULTIVITAMIN TAB PO SCH (09:43)
[2021-04-27] MEDS: DOXYCYCLINE HYCLATE 100 MG CAP PO SCH ×2 (09:43→22:16)
[2021-04-27] MEDS: rOPINIRole HCL 0.25 MG TABLET PO SCH (15:57)
[2021-04-27] MEDS ORDERED: buPROPion SR 150 MG TABCR PO SCH (16:30)
[2021-04-27] MEDS ORDERED: rOPINIRole HCL 0.25 MG TABLET PO PRN (16:31)
[2021-04-27] MEDS ORDERED: DIPHENOXYLATE/ATROPINE 2.5/0.025MG TAB PO PRN (20:25)
--- NOTE | 2021-04-27 20:58 | Hospitalist Progress Note ---
Date of Service April 27, 2021 Assessment & Plan (1) Acute hypoxemic respiratory failure: Plan: COVID-19 pneumonia CXR showed no acute cardiopulmonary findings. CT multifocal groundglass opacities within the lower lungs suggest viral pneumonia. Received 1 dose of remdesivir and dexamethasone on admission but patient did not want to continue additional doses (Patient hesitant about additional steroid Rx following unpleasant experience with Medrol Dosepak prescribed by PCP.) She said that she just completed a course of steroid Currently patient is saturating above 93 on room air. Since patient does not want any additional remdesivir and steroid will hold on for now since pt saturates well on RA Doxycycline was started for possible superimposed bacterial infection Will check procalcitonin and if negative will discontinue antibiotic Continue cough med and incentive spirometry Continue monitor closely Diarrhea Possible related to acute illness versus antibiotic doxy Stool for C. difficile negative We will add Lomotil as needed Continue monitor electrolytes Hypertension Continue metoprolol Restless leg syndrome Has been taking Requip couple times during the day Will resume Requip 0.5 QID prn for now DVT prophylaxis per Lovenox subcu Full code Patient daughter requesting updates from providers. Ms. Ting Madden, contact #[phone]. Admission and Anticipated Discharge Date Admission Date: April 26, 2021 Subjective Patient was seen and examined for follow-up of COVID-19 and diarrhea Upon entering her room she was walking back from the bathroom to the bed with no distress Patient said that she had about 5 episodes of diarrhea today She saturated well on room air She said her cough improved and she is not having any breathing problem Denies any chest pain, palpitation, dizziness, shortness of breath. Review of Systems Review of Systems: All systems reviewed & are unremarkable except as noted in Subjective Results & Data Results & Data ([facility]) Vital Signs (Past 12 Hours) Vital Signs Temp Pulse Resp BP Pulse Ox 04/27/21 19:28 36.5 C 100 H 20 132/80 96 04/27/21 15:47 36.8 C 90 14 113/71 93 04/27/21 11:23 36.8 C 83 18 107/74 93 04/27/21 09:47 92 H 20 93
[2021-04-27] MEDS: METOPROLOL SUCC 25MG EXT REL TAB PO SCH (22:17)
[2021-04-28] MEDS: HEPARIN SOD 5,000 UNIT/0.5 ML VIAL SQ SCH ×2 (06:14→14:19)
[2021-04-28] MEDS ORDERED: NURSING DECISION MEDICATION ONE (07:55)
[2021-04-28] MEDS ORDERED: SODIUM CHLORIDE 0.65% NA SOLN 45 ML (OCEAN) PRN (08:10)
[2021-04-28] MEDS: traMADol HCL 50 MG TABLET PO PRN ×2 (08:17→14:35)
[2021-04-28] MEDS: ATORVASTATIN 40 MG TAB PO SCH (08:18)
[2021-04-28] MEDS: CLOPIDOGREL BISULFATE 75 MG TAB PO SCH (08:18)
[2021-04-28] MEDS: DOXYCYCLINE HYCLATE 100 MG CAP PO SCH (08:18)
[2021-04-28] MEDS: MULTIVITAMIN TAB PO SCH (08:19)
[2021-04-28] MEDS: PANTOprazole 40 MG TAB PO SCH (08:19)
[2021-04-28] MEDS: ASPIRIN 81 MG ECTAB PO SCH (08:19)
[2021-04-28 08:39] LABS: Albumin Level 2.4 gm/dl (3.4-5.0); BUN Creatinine Ratio 21.8 (10-20); C Reactive Protein 4.68 mg/dl (0-0.29); Calcium 8.7 mg/dl (8.5-10.1); Creatinine Clr Calc Pharmacy 52.3 ml/min; Est GFR (African American) 67.7 ml/min; Est GFR (Non-African American) 58.5 ml/min; Potassium 3.3 mmol/L (3.5-5.1)
[2021-04-28 08:42] LABS: Albumin Globulin Ratio 0.6 (0.9-2); Bilirubin,Total 0.3 mg/dl (0.2-1); Total Protein 6.4 gm/dl (6.4-8.2)
[2021-04-28] MEDS ORDERED: POTASSIUM CHLORIDE CRTAB 20 MEQ TABCR PO STA (10:31)
--- NOTE | 2021-04-28 13:29 | Discharge Summary ---
Date of Service April 28, 2021 Admission HPI Per Admitting Provider History obtained from patient, family, and records. Medical history significant for hypertension, CVA, breast cancer status post surgery, DEE (currently not compliant secondary to machine recall), restless leg syndrome/essential tremors as per patient, past tobacco abuse. Last confinement March 2020 for acute/subacute stroke. MRI of the brain showed acute/subacute right internal capsule CVA. Patient discharged on dual antiplatelet therapy. Last week patient noted to have dry cough symptoms later noted to be junky and productive of yellow sputum. No chest pain, no S OB. Completed COVID-19 vaccination. Patient was caring for who is currently confined at [facility] for COVID-19 pneumonia. Patient had a positive COVID-19 home kit test last week. Patient prescribed Medrol course by PCP "which tore me apart". Achy right-sided abdominal pain with diarrhea symptoms. Poor appetite. O2 sats 85 on room air at some point during ER stay. 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 Admission Exam Per Admitting Provider GENERAL: uncomfortable, obese, tremulous, wane, no respiratory distress SKIN: Normal color, warm HEENT: [place] palpebral conjunctivae, no ptosis, dry buccal mucosa, nasal cannula in place NECK : Supple, short neck, no tenderness CHEST : Decreased breath sounds,, no tenderness HEART : RRR, no obvious murmurs ABDOMEN: Some distention, minimal right-sided abdominal tenderness EXTREMITIES : Minimal LE swelling, no LE tenderness, no other conspicuous deformities noted NEUROLOGIC : Coherent, no facial asymmetry, tremulous, no other gross focality Principal Diagnosis Acute hypoxic respiratory failure COVID-19 pneumonia Discharge Exam Constitutional + well hydrated and + obese; no acute distress Eyes PERRL, conjunctivae normal, anicteric sclerae ENMT external ear and nose normal, oropharynx normal Respiratory Not in respiratory distress, on room air at rest, diminished breath sounds, no crackles Cardiovascular RRR S1 S2 Gastrointestinal (Abdomen) normal bowel sounds, soft, nontender, no hepatosplenomegaly Musculoskeletal No pedal edema Neurologic PERRL, EOMI, accommodation nl, no face palsy, no dysarthria Psychiatric A+Ox3, euthymic affect Discharge Data Allergies Allergy/AdvReac Type Severity Reaction Status Date / Time Iodinated Contrast Media Allergy Intermediate HIVES--IVP Verified 04/26/21 18:14 DYE Consultations 04/26/21 18:55 ED Decision to Admit Stat Ordered Studies 04/26/21 16:14 CT abd pelvis wo con Stat Multifocal groundglass opacities are noted within visualized portions of the lower lungs. No renal calculi are present. There is no hydronephrosis. Evaluation for ureteral calculi is difficult given radiodensities within the r ight adnexa however no convincing ureteral calculi are identified. These radiodensities are unchanged since CT of September 25, 2014. Colonic diverticulosis is noted without evidence for acute diverticulitis. There is no evidence for acute appendicitis. Evaluation of the abdomen and pelvis is suboptimal on this unenhanced exam. There is a small hiatal hernia. There is a lateral segment hepatic cyst. No biliary or pancreatic ductal dilatation is present. There is no evidence for a bowel obstruction. No ascites is present. No acute fracture or suspicious lesion is identified within the visualized skeletal structures. IMPRESSION: 1. No urinary calculi or hydronephrosis. However, evaluation for distal right ureteral calculi difficult given numerous radiodensities within the right hemipelvis. These radiodensities are unchanged since prior CT and likely iatrogenic. 2. No acute process within the abdomen or pelvis on unenhanced exam. 3. Colonic diverticulosis without evidence for acute diverticulitis. 4. No evidence for acute appendicitis. No bowel obstruction. Hospital Course (1) Acute hypoxemic respiratory failure: COVID-19 pneumonia CXR showed no acute cardiopulmonary findings. CT abd did show multifocal groundglass opacities within the lower lungs suggestive of viral pneumonia. Received 1 dose of remdesivir and dexamethasone on admission but patient did not want to continue additional doses (Patient hesitant about additional steroid Rx following unpleasant experience with Medrol Dosepak prescribed by PCP.) She said that she just completed a course of steroid Currently patient saturating well on room air. Doxycycline was initially started for possible superimposed bacterial infection. However, was discontinued with clinical improvement and negative procalcitonin Ambulatory pulse ox showed patient require 2l/min with activity. Script given to CM to make arrangement Patient to follow up with PCP Diarrhea Possible related to acute illness Stool for C. difficile negative No diarrhea today Hypertension Continue home medications Restless leg syndrome Continue home requip Total Time Total Time Spent Total Time Spent (In Minutes): 50 Discharge Plan Discharge Items Patient Disposition: Home - Self-Care Reason For Visit: RESP FAILURE COVID Discharge Diagnosis: Acute hypoxic respiratory failure COVID-19 pneumonia Activity: Resume your previous activity Non-emergency contact: Primary Care Provider Call non-emergency contact if: you have any medication questions and your symptoms worsen Follow-up/Referrals: Amelia Frye [Primary Care Provider] - Diet: Heart Healthy Addtl Attending Provider Instructions: Mrs James You came to the hospital complaining of cough, achy abdominal pain and diarrhea You were found to have COVID 19 pneumonia and requiring oxygen. You received a dose of dexamethasone and remdesivir but declined further doses. You were weaned off oxygen. You are being discharged on oxygen at 2l/min with activity. Please ensure follow up with your Primary Doctor. It was a pleasure taking care of you. Pending Studies at Discharge: No Stand-Alone Forms: [facility] [employer], Smoking Cessation Medications and DC Order Prescriptions: Continued clopidogrel 75 mg tablet 75 mg PO DAILY RF: 0 gabapentin 100 mg capsule 100 mg PO TID RF: 0 losartan [Cozaar] 100 mg tablet 100 mg PO QAM RF: 0 omega-3 fatty acids [Fish Oil Concentrate] 1,000 mg capsule 1,000 mg PO QAM RF: 0 multivitamin tablet 1 tab PO QAM RF: 0 ropinirole 0.5 mg tablet 0.5 mg PO HS RF: 0 pantoprazole 40 mg tablet,delayed release (DR/EC) 40 mg PO QAM RF: 0 metoprolol succinate 25 mg tablet extended release 24 hr 12.5 mg PO HS RF: 0 bupropion HCl (smoking deter) 150 mg tablet extended release 12 hr 150 mg PO QDD RF: 0 atorvastatin 40 mg tablet 40 mg PO DAILY RF: 0 aspirin 81 mg Tablet,Delayed Release (Dr/Ec) 81 mg PO DAILY RF: 0 albuterol sulfate 90 mcg/actuation HFA aerosol inhaler 2 puff INHALATION DIRECTED PRN (Reason: Shortness Of Breath) RF: 0 cholecalciferol (vitamin D3) [Vitamin D3] 25 mcg (1,000 unit) Capsule 25 mcg PO DAILY RF: 0 calcium carbonate-vitamin D3 [Calcium 600 + D(3)] 600 mg(1,500mg) -400 unit Tablet 1 tab PO BID RF: 0 ropinirole 2 mg Tablet Extended Release 24 Hr 2 mg PO QPM RF: 0 Dexilant 60 mg capsule,biphase delayed releas 60 mg PO DAILY RF: 0 Discontinued methylprednisolone 4 mg tablet 0 mg PO DAILY RF: 0 Discharge Orders: Discharge Order (Routine); Ordered 04/28/21 Ordered By: Berta Johnson Admission Data Admit Date/Time: 04/26/21 19:44 Attending Provider: Berta Johnson I. Admit Provider: Lucas Anderson Primary Care Provider: Amelia Frye Other Providers: Lucas Anderson Other Interventions: Discharge Summary Assessment (RN) Last Done: 04/28/21 13:47
== END 2021-04-28 17:18 | disposition home or self-care (01) | DRG 177 ==
LOC: ED 13:54 → SUATTDRO 19:44 → 2S 19:44

== ENCOUNTER 2025-05-07 11:04 | Inpatient (IN) ==
--- NOTE | 2025-05-07 12:07 | Emergency Department Note ---
Impression & Plan Generalized weakness, Hypoxia, Thrombocytopenia ED Provider Note HISTORY OF PRESENT ILLNESS: Patient is an 85-year-old female presenting with multiple complaints. Patient reports she has been feeling generally unwell for the last 2 weeks. She reports that 2 weeks ago she found a tick on her right low back. This was removed by her family member. She reports that 3 days later she started having symptoms of general malaise and feeling fatigued. She reports feeling very weak and having flulike symptoms. Reports generalized bodyaches and low-grade fevers. She reports her Tmax was up to 101. Her last dose of antipyretic was last night. She states that her mouth has felt very dry and she has had extreme thirst and increased urination. She denies any chest pain or shortness of breath. Denies any abdominal pain or vomiting, but does report nausea and had an episode of diarrhea today. Denies any notable rashes. She does report she has been having a persistent headache for the last 1.5 weeks. She denies any recent falls or head injuries. Denies any numbness or tingling or weakness in her extremities. Denies any double or blurry vision. ROS: as above PHYSICAL EXAM: Constitutional: Patient appears in no acute distress. HENT: Head: Normocephalic and atraumatic. Eyes: EOMI, PERRL Mouth/Throat: Mucous membranes moist. Neck: Trachea midline. Neck supple. Cardiovascular: RRR, No murmurs, rubs or gallops. Intact distal pulses. Pulmonary/Chest: No respiratory distress. Breath sounds clear and equal bilaterally. No wheezes or rales. Abdominal: Abdomen soft, no tenderness, rebound or guarding. Musculoskeletal: No edema, tenderness or deformity noted. Skin: Warm and dry. No rash, erythema, pallor or cyanosis Psychiatric: Appropriate mood and affect for situation. Neurological: Alert and keenly responsive. CN II-XII grossly intact, moving all extremities equally and fully. MDM: - Vitals signs showed tachycardia - History obtained via patient. History as above. - Chronic conditions affecting care: GERD; HTN; HLD; DM-2; CVA - Differential diagnoses include, but are not limited to: UTI; pneumonia; tick borne illness; viral syndrome; dehydration; electrolyte abnormality - Order placed for continuous cardiac monitoring. At this time, monitor showed rate of 92 bpm with normal sinus rhythm, per my interpretation. - External medical records reviewed. Discharge summary dated 04/28/2021 was reviewed. Patient was admitted at that for acute hypoxic respiratory failure secondary to COVID-pneumonia. - EKG image interpreted by myself showed normal sinus rhythm. Rate 98 bpm. QT 330. No acute ischemic changes. - Laboratory workup interpreted by myself showed normal WBC; thrombocytopenia (plt 102); normal PT/INR; stable electrolytes; normal AST/ALT; normal lipase; normal lactate; normal troponin - Negative lyme/anaplasmosis/babesia - CXR image reviewed interpreted myself is negative for pneumonia, per my interpretation. - Viral respiratory panel negative - Blood cultures obtained, given patient's nonspecific symptoms - UA negative for infection. Noted to have ketonuria and RBCs. - Given 1g IV tylenol and 1L NS. - CT head wo contrast ordered. - Patient did become hypoxic in the emergency department and started on supplemental oxygen. - Unclear allergy for the patient symptoms at this time. Will plan to admit to hospitalist service. - Discussion was had with hospice case manager about patient's case and need for admission - Hospitalist consulted for admission - Patient admitted to [facility] hospitalist service for further evaluation and management. ASSESSMENT AND PLAN: Diagnosis: Generalized weakness; thrombocytopenia; hypoxia Plan: Admit Past Med/Surg History Problem List (Updated 05/07/25 @ 14:42 by Cynthia Tafoya MD) Thrombocytopenia (Acute) Hypoxia (Acute) Generalized weakness (Acute) Acute hypoxemic respiratory failure COVID-19 (Acute) Abdominal pain (Acute) Hypoxia (Acute) Nausea (Acute) Acute lacunar stroke Left leg weakness (Acute) Restless leg syndrome Obesity Nocturnal hypoxemia Mild obstructive sleep apnea Diabetes (Acute) Hypertension (Acute) Hyperlipidemia (Acute) Anxiety (Acute) GERD (gastroesophageal reflux disease) (Acute) Diverticulitis (Acute) Medical History (Updated 05/07/25 @ 14:42 by Cynthia Tafoya MD) Stroke-like episode Surgical History History of hysterectomy Family History (Updated 05/27/19 @ 14:01 by Gianna Matute PA-C) Mother Myocardial infarction Father Myocardial infarction Brother Obstructive sleep apnea Social History (Updated 05/27/19 @ 14:01 by Gianna M. Giovani, PA-C) Smoking Status: Never smoker Tobacco Type: Cigarettes Hx Alcohol Use: No Hx Substance Use: No Preferred Language: Kyrgyz Communication Ability: Effective Real Estate Assessor Required: No Beliefs That Will Affect Care: Amish marital status: Current Living Situation: Spouse Feels Safe at Home: Yes Assistive Devices: Oxygen - Continuous Allergies Allergies Allergy/AdvReac Type Severity Reaction Status Date / Time Iodinated Contrast Media Allergy Intermediate HIVES--IVP Verified 04/26/21 18:14 DYE Home Meds Home Medications Medication Instructions Recorded Confirmed losartan 100 mg tablet (Cozaar) 100 mg PO QAM 04/05/19 04/26/21 multivitamin 1 tab PO QAM 04/05/19 04/26/21 omega-3 fatty acids 1,000 mg 1,000 mg PO QAM 04/05/19 04/26/21 capsule (Fish Oil Concentrate) ropinirole 0.5 mg tablet 0.5 mg PO HS 04/05/19 04/26/21 bupropion HCl (smoking deter) 150 150 mg PO QDD 03/31/20 04/26/21 mg tablet,12 hr sustained-release(smoking deterrent) metoprolol succinate 25 mg 12.5 mg PO HS 03/31/20 04/26/21 tablet,extended release 24 hr pantoprazole 40 mg tablet,delayed 40 mg PO QAM 03/31/20 04/26/21 release clopidogrel 75 mg tablet 75 mg PO DAILY 05/19/20 04/26/21 gabapentin 100 mg capsule 100 mg PO TID 05/19/20 04/26/21 albuterol sulfate 90 mcg/actuation 2 puff inhalation DIRECTED PRN 04/26/21 04/26/21 aerosol inhaler Shortness Of Breath aspirin 81 mg tablet,delayed 81 mg PO DAILY 04/26/21 04/26/21 release atorvastatin 40 mg tablet 40 mg PO DAILY 04/26/21 04/26/21 calcium 600 mg (as 1 tab PO BID 04/26/21 04/26/21 carbonate)-vitamin D3 10 mcg (400 unit) tablet (Calcium 600 + D(3)) cholecalciferol (vitamin D3) 25 25 mcg PO DAILY 04/26/21 04/26/21 mcg (1,000 unit) capsule (Vitamin D3) dexlansoprazole 60 mg 60 mg PO DAILY 04/26/21 04/26/21 capsule,biphase delayed release (Dexilant) ropinirole 2 mg tablet,extended 2 mg PO QPM 04/26/21 04/26/21 release 24 hr Results & Data (ED) Vital Signs Vital Signs - 24 hr 05/07/25 11:13 05/07/25 11:30 05/07/25 11:42 Temperature 36.8 C Temperature Source Oral Pulse Rate 105 H 101 H 98 H Pulse Rate [Apical] Pulse Rate from SpO2 Sensor 99 H Pulse Strength [Apical] Respiratory Rate 20 21 Respiratory Effort / Characteristics Non-Labored Spontaneous Respiratory Depth Normal Respiratory Pattern Regular Blood Pressure 132/78 Blood Pressure [Right Arm] Blood Pressure Mean 96 Blood Pressure Mean [Right Arm] Pulse Oximetry 93 97 Oxygen Delivery Method Room Air Room Air Sepsis Recent Fever Within 48 Hours No Sepsis New/Unexplained Change in Mental Status N/A Sepsis Action Taken by Nursing No Action Required Oxygen Flow Rate - Titration Pulse Oximetry Post Tiitration 05/07/25 11:48 05/07/25 11:48 05/07/25 11:51 Temperature Temperature Source Pulse Rate 98 H Pulse Rate [Apical] Pulse Rate from SpO2 Sensor 98 H Pulse Strength [Apical] Respiratory Rate 20 Respiratory Effort / Characteristics Respiratory Depth Respiratory Pattern Blood Pressure 120/69 Blood Pressure [Right Arm] Blood Pressure Mean 80 Blood Pressure Mean [Right Arm] Pulse Oximetry 94 93 Oxygen Delivery Method Room Air Room Air Sepsis Recent Fever Within 48 Hours Sepsis New/Unexplained Change in Mental Status Sepsis Action Taken by Nursing Oxygen Flow Rate - Titration Pulse Oximetry Post Tiitration 05/07/25 12:00 05/07/25 12:00 05/07/25 12:30 Temperature Temperature Source Pulse Rate 95 H 92 H Pulse Rate [Apical] Pulse Rate from SpO2 Sensor 96 H 92 H Pulse Strength [Apical] Respiratory Rate 22 24 Respiratory Effort / Characteristics Respiratory Depth Respiratory Pattern Blood Pressure 136/77 Blood Pressure [Right Arm] Blood Pressure Mean 96 Blood Pressure Mean [Right Arm] Pulse Oximetry 93 92 Oxygen Delivery Method Room Air Room Air Sepsis Recent Fever Within 48 Hours Sepsis New/Unexplained Change in Mental Status Sepsis Action Taken by Nursing Oxygen Flow Rate - Titration Pulse Oximetry Post Tiitration 05/07/25 12:30 05/07/25 13:00 05/07/25 13:00 Temperature Temperature Source Pulse Rate 90 Pulse Rate [Apical] Pulse Rate from SpO2 Sensor 99 H Pulse Strength [Apical] Respiratory Rate 24 Respiratory Effort / Characteristics Respiratory Depth Respiratory Pattern Blood Pressure 125/52 L 114/56 L Blood Pressure [Right Arm] Blood Pressure Mean 71 76 Blood Pressure Mean [Right Arm] Pulse Oximetry 87 L Oxygen Delivery Method Room Air Sepsis Recent Fever Within 48 Hours Sepsis New/Unexplained Change in Mental Status Sepsis Action Taken by Nursing Oxygen Flow Rate - Titration Pulse Oximetry Post Tiitration 05/07/25 13:12 05/07/25 13:14 05/07/25 13:14 Temperature Temperature Source Pulse Rate 90 Pulse Rate [Apical] 95 H Pulse Rate from SpO2 Sensor Pulse Strength [Apical] Normal Respiratory Rate 22 18 Respiratory Effort / Characteristics Non-Labored Spontaneous Respiratory Depth Normal Respiratory Pattern Regular Blood Pressure 140/72 Blood Pressure [Right Arm] 140/72 Blood Pressure Mean 101 Blood Pressure Mean [Right Arm] 94 Pulse Oximetry 93 96 Oxygen Delivery Method Room Air Sepsis Recent Fever Within 48 Hours Sepsis New/Unexplained Change in Mental Status Sepsis Action Taken by Nursing Oxygen Flow Rate - Titration Pulse Oximetry Post Tiitration 05/07/25 13:30 05/07/25 13:30 05/07/25 14:00 Temperature Temperature Source Pulse Rate 94 H Pulse Rate [Apical] Pulse Rate from SpO2 Sensor Pulse Strength [Apical] Respiratory Rate 19 Respiratory Effort / Characteristics Respiratory Depth Respiratory Pattern Blood Pressure 118/62 99/43 L Blood Pressure [Right Arm] Blood Pressure Mean 84 58 Blood Pressure Mean [Right Arm] Pulse Oximetry Oxygen Delivery Method Sepsis Recent Fever Within 48 Hours Sepsis New/Unexplained Change in Mental Status Sepsis Action Taken by Nursing Oxygen Flow Rate - Titration Pulse Oximetry Post Tiitration 05/07/25 14:00 05/07/25 14:12 Temperature Temperature Source Pulse Rate 92 H Pulse Rate [Apical] Pulse Rate from SpO2 Sensor Pulse Strength [Apical] Respiratory Rate 20 Respiratory Effort / Characteristics Respiratory Depth Respiratory Pattern Blood Pressure Blood Pressure [Right Arm] Blood Pressure Mean Blood Pressure Mean [Right Arm] Pulse Oximetry 87 L Oxygen Delivery Method Room Air Sepsis Recent Fever Within 48 Hours Sepsis New/Unexplained Change in Mental Status Sepsis Action Taken by Nursing Oxygen Flow Rate - Titration 2 Pulse Oximetry Post Tiitration 91 Laboratory Data 05/07/25 11:47 05/07/25 11:47 Lab Results 05/07/25 05/07/25 05/07/25 Range/Units 11:36 11:40 11:47 WBC 6.02 (4.8-10.8) K/ul RBC 4.15 L (4.20-5.40) M/uL Hgb 12.5 (12.0-16.0) g/dl Hct 37.6 (37.0-47.0) % MCV 90.6 (80.0-100.0) fL MCH 30.1 (25.0-34.0) pg MCHC 33.2 (32.0-36.0) g/dL RDW Std Deviation 46.2 (36.4-46.3) fL RDW Coeff of Andree 13.9 (11.5-14.5) % Plt Count 102 L (130-400) K/uL MPV 11.5 (9.4-12.4) fL Immature Gran % (Auto) 0.8 % Neut % (Auto) 73.7 % Lymph % (Auto) 14.0 % [place] % (Auto) 11.0 % Eos % (Auto) 0.2 % Baso % (Auto) 0.3 % Neut # (Auto) 4.44 (1.40-6.50) K/uL Lymph # (Auto) 0.84 L (1.20-3.40) K/uL [place] # (Auto) 0.66 H (0.11-0.59) K/uL Eos # (Auto) 0.01 (0.00-0.50) K/uL Baso # (Auto) 0.02 (0.00-0.20) K/uL Immature Gran # (Auto) 0.05 (0.01-0.20) K/uL PT 10.9 (9.0-12.0) Seconds INR 1.0 (0.9-1.1) Sodium 134 L (136-145) mmol/L Potassium 3.9 (3.5-5.1) mmol/L Chloride 103 (98-107) mmol/L Carbon Dioxide 23 (21-32) mmol/L Anion Gap 8 (3-11) BUN 17 (6-23) mg/dl Creatinine 0.93 (0.6-1.2) mg/dl Est Cr Clr Drug Dosing Not Reportable eGFR 60.98 BUN/Creatinine Ratio 18.3 (10-20) Glucose 105 H (70-99(Fasting)) mg/dl Lactate 1.6 (0.4-2.0) mmol/L Calcium 8.7 (8.6-10.3) mg/dl Total Bilirubin 0.9 (0.2-1.0) mg/dl AST 28 (13-39) U/L ALT 37 (7-52) U/L Alkaline Phosphatase 69 (34-104) U/L Troponin I High Sens 8.6 (0-14) pg/ml Total Protein 6.6 (6.0-8.3) gm/dl Albumin 3.6 (3.4-5.0) gm/dl Globulin 3.0 (2.5-4.0) gm/dl Albumin/Globulin Ratio 1.2 (0.9-2) Lipase 40 (11-82) U/L Urine Color Urine Appearance (Clear) Urine pH (4.5-7.5) Ur Specific [place] (1.000-1.030) Urine Protein (Negative) Urine Glucose (UA) (Negative) Urine Ketones (Negative) Urine Blood (Negative) Urine Nitrite (Negative) Urine Bilirubin (Negative) Urine Urobilinogen (Negative) Ur Leukocyte Esterase (Negative) Urine WBC (Auto) (0-5) /hpf Urine RBC (Auto) (0-2) /hpf U Hyaline Cast (Auto) (0-2) /lpf U Epithel Cells (Auto) (0-2) /hpf Urine Bacteria (Auto) (None Seen) Urine Comment Adenovirus (PCR) Not Detected (NotDetected) Anaplasma Smear See Comment Babesia Smear See Comment B. pertussis DNA (PCR) Not Detected (NotDetected) B.parapertussis DNA PCR Not Detected (NotDetected) Lyme Disease Screen Negative (Negative) C. pneumoniae DNA (PCR) Not Detected (NotDetected) Coronavirus OC43 (PCR) Not Detected (NotDetected) Coronavirus HKU1 (PCR) Not Detected (NotDetected) Coronavirus 229E (PCR) Not Detected (NotDetected) SARS-CoV-2 (PCR) Not Detected (NotDetected) Coronavirus NL63 (PCR) Not Detected (NotDetected) Human Metapneumovir PCR Not Detected (NotDetected) Influenza Type A (PCR) Not Detected (NotDetected) Influenza Type B (PCR) Not Detected (NotDetected) M. pneumoniae (PCR) Not Detected (NotDetected) Parainfluenza 1 (PCR) Not Detected (NotDetected) Parainfluenza 2 (PCR) Not Detected (NotDetected) Parainfluenza 3 (PCR) Not Detected (NotDetected) Parainfluenza 4 (PCR) Not Detected (NotDetected) RSV (PCR) Not Detected (NotDetected) Entero/Rhino (PCR) Not Detected (NotDetected) Blood Type O Positive Antibody Screen NEGATIVE 05/07/25 Range/Units Unknown WBC (4.8-10.8) K/ul RBC (4.20-5.40) M/uL Hgb (12.0-16.0) g/dl Hct (37.0-47.0) % MCV (80.0-100.0) fL MCH (25.0-34.0) pg MCHC (32.0-36.0) g/dL RDW Std Deviation (36.4-46.3) fL RDW Coeff of Andree (11.5-14.5) % Plt Count (130-400) K/uL MPV (9.4-12.4) fL Immature Gran % (Auto) % Neut % (Auto) % Lymph % (Auto) % [place] % (Auto) % Eos % (Auto) % Baso % (Auto) % Neut # (Auto) (1.40-6.50) K/uL Lymph # (Auto) (1.20-3.40) K/uL [place] # (Auto) (0.11-0.59) K/uL Eos # (Auto) (0.00-0.50) K/uL Baso # (Auto) (0.00-0.20) K/uL Immature Gran # (Auto) (0.01-0.20) K/uL PT (9.0-12.0) Seconds INR (0.9-1.1) Sodium (136-145) mmol/L Potassium (3.5-5.1) mmol/L Chloride (98-107) mmol/L Carbon Dioxide (21-32) mmol/L Anion Gap (3-11) BUN (6-23) mg/dl Creatinine (0.6-1.2) mg/dl Est Cr Clr Drug Dosing eGFR BUN/Creatinine Ratio (10-20) Glucose (70-99(Fasting)) mg/dl Lactate (0.4-2.0) mmol/L Calcium (8.6-10.3) mg/dl Total Bilirubin (0.2-1.0) mg/dl AST (13-39) U/L ALT (7-52) U/L Alkaline Phosphatase (34-104) U/L Troponin I High Sens (0-14) pg/ml Total Protein (6.0-8.3) gm/dl Albumin (3.4-5.0) gm/dl Globulin (2.5-4.0) gm/dl Albumin/Globulin Ratio (0.9-2) Lipase (11-82) U/L Urine Color Yellow Urine Appearance Clear (Clear) Urine pH 6.0 (4.5-7.5) Ur Specific [place] 1.020 (1.000-1.030) Urine Protein 1+ H (Negative) Urine Glucose (UA) 2+ H (Negative) Urine Ketones 1+ H (Negative) Urine Blood Negative (Negative) Urine Nitrite Negative (Negative) Urine Bilirubin Negative (Negative) Urine Urobilinogen Negative (Negative) Ur Leukocyte Esterase Negative (Negative) Urine WBC (Auto) 0-5 (0-5) /hpf Urine RBC (Auto) 3-5 H (0-2) /hpf U Hyaline Cast (Auto) 3-5 H (0-2) /lpf U Epithel Cells (Auto) 3-5 H (0-2) /hpf Urine Bacteria (Auto) None Seen (None Seen) Urine Comment Adenovirus (PCR) (NotDetected) Anaplasma Smear Babesia Smear B. pertussis DNA (PCR) (NotDetected) B.parapertussis DNA PCR (NotDetected) Lyme Disease Screen (Negative) C. pneumoniae DNA (PCR) (NotDetected) Coronavirus OC43 (PCR) (NotDetected) Coronavirus HKU1 (PCR) (NotDetected) Coronavirus 229E (PCR) (NotDetected) SARS-CoV-2 (PCR) (NotDetected) Coronavirus NL63 (PCR) (NotDetected) Human Metapneumovir PCR (NotDetected) Influenza Type A (PCR) (NotDetected) Influenza Type B (PCR) (NotDetected) M. pneumoniae (PCR) (NotDetected) Parainfluenza 1 (PCR) (NotDetected) Parainfluenza 2 (PCR) (NotDetected) Parainfluenza 3 (PCR) (NotDetected) Parainfluenza 4 (PCR) (NotDetected) RSV (PCR) (NotDetected) Entero/Rhino (PCR) (NotDetected) Blood Type Antibody Screen Administered Medications Discontinued Medications Acetaminophen (Acetaminophen 1000 Mg/100 Ml Iv) Confirm Administered Dose 1,000 mg IV .STK-MED ONE Stop: 05/07/25 13:00 Last Admin: 05/07/25 13:11 Dose: 1,000 mg Documented By: SIL Sodium Chloride (Nss) 1,000 mls @ 999 mls/hr IV .Q1H1M ONE Stop: 05/07/25 13:46 Last Infusion: 05/07/25 14:23 Dose: Infused Documented By: Admin: 05/07/25 12:50 Dose: 999 mls/hr Documented By: SIL Imaging Data Radiologist's Impression: Chest X-Ray 05/07/25 11:21 XR chest 1V portable CLINICAL HISTORY: weakness COMPARISON STUDY: 04/26/2021 FINDINGS: Heart size and pulmonary vasculature are normal. Exam is rotated. No consolidation or pleural effusion seen. No pneumothorax. IMPRESSION: No acute findings. ACT 112: Negative or not required by law. Electronically signed by: Khurram Casper M.D. 05/07/2025 12:47 PM Discharge Plan Visit Data Chief Complaint: Illness Stated Complaint: FEVER, CHILLS, RECTAL PRESSURE, BLACK STOOL ED Provider: Cynthia Tafoya Discharge Problem: Generalized weakness, Hypoxia, Thrombocytopenia Patient Disposition: Admitted As Inpatient Condition: Fair Forms Stand Alone Forms: My [facility] Prescriptions Prescriptions: No Action clopidogrel 75 mg tablet 75 mg PO DAILY gabapentin 100 mg capsule 100 mg PO TID losartan [Cozaar] 100 mg tablet 100 mg PO QAM omega-3 fatty acids [Fish Oil Concentrate] 1,000 mg capsule 1,000 mg PO QAM multivitamin tablet 1 tab PO QAM ropinirole 0.5 mg tablet 0.5 mg PO HS Rx Instructions: TAKE 1 HOUR PRIOR TO HS. pantoprazole 40 mg tablet,delayed release (DR/EC) 40 mg PO QAM metoprolol succinate 25 mg tablet extended release 24 hr 12.5 mg PO HS bupropion HCl (smoking deter) 150 mg tablet extended release 12 hr 150 mg PO QDD atorvastatin 40 mg tablet 40 mg PO DAILY aspirin 81 mg Tablet,Delayed Release (Dr/Ec) 81 mg PO DAILY albuterol sulfate 90 mcg/actuation HFA aerosol inhaler 2 puff INHALATION DIRECTED PRN (Reason: Shortness Of Breath) cholecalciferol (vitamin D3) [Vitamin D3] 25 mcg (1,000 unit) Capsule 25 mcg PO DAILY calcium carbonate-vitamin D3 [Calcium 600 + D(3)] 600 mg(1,500mg) -400 unit Tablet 1 tab PO BID ropinirole 2 mg Tablet Extended Release 24 Hr 2 mg PO QPM Rx Instructions: TAKES AT 1700 DAILY. Dexilant 60 mg capsule,biphase delayed releas 60 mg PO DAILY Referrals Referrals: Eliana Frye MD [Primary Care Provider] -
[2025-05-07 12:28] LABS: Alanine Aminotransferase 37 U/L (7-52); Albumin Globulin Ratio 1.2 (0.9-2); Albumin Level 3.6 gm/dl (3.4-5.0); Alkaline Phosphatase 69 U/L (34-104); Anion Gap 8 (3-11); Bilirubin,Total 0.9 mg/dl (0.2-1.0); Blood Urea Nitrogen 17 mg/dl (6-23); Calcium 8.7 mg/dl (8.6-10.3); Carbon Dioxide 23 mmol/L (21-32); Chloride 103 mmol/L (98-107); Globulin 3.0 gm/dl (2.5-4.0); Glucose 105 mg/dl (70-99(Fasting)); Lipase 40 U/L (11-82); Potassium 3.9 mmol/L (3.5-5.1); Sodium 134 mmol/L (136-145); Total Protein 6.6 gm/dl (6.0-8.3)
[2025-05-07 12:31] LABS: Hematocrit (blood only) 37.6 % (37.0-47.0); Hemoglobin 12.5 g/dl (12.0-16.0); Mean Corpuscular Hemoglobin 30.1 pg (25.0-34.0); Mean Corpuscular Volume 90.6 fL (80.0-100.0); Platelet Count 102 K/uL (130-400); RDW Standard Deviation 46.2 fL (36.4-46.3); Red Blood Count 4.15 M/uL (4.20-5.40); White Blood Count 6.02 K/ul (4.8-10.8)
[2025-05-07 12:35] LABS: INR 1.0 (0.9-1.1); Prothrombin Time 10.9 Seconds (9.0-12.0)
[2025-05-07 12:47] LABS: Immature Granulocytes # (auto) 0.05 K/uL (0.01-0.20); Immature Granulocytes % (auto) 0.8 %
--- NOTE | 2025-05-07 12:48 | XRay Report ---
XR chest 1V portable CLINICAL HISTORY: weakness COMPARISON STUDY: 04/26/2021 FINDINGS: Heart size and pulmonary vasculature are normal. Exam is rotated. No consolidation or pleur al effusion seen. No pneumothorax. IMPRESSION: No acute findings. ACT 112: Negative or not required by law. Electronically signed by: Khurram Casper M.D. 05/07/2025 12:47 PM
[2025-05-07] MEDS: SODIUM CHLORIDE 0.9% 1,000 ML IV ONE (12:50)
[2025-05-07 13:03] LABS: Chlamydia pneumoniae PCR Not Detected (NotDetected); Coronavirus 229E PCR Not Detected (NotDetected); Coronavirus CoV-2 (COVID19)PCR Not Detected (NotDetected); Coronavirus HKU1 PCR Not Detected (NotDetected); Coronavirus NL63 PCR Not Detected (NotDetected); Coronavirus OC43PCR Not Detected (NotDetected); Human Metapneumovirus PCR Not Detected (NotDetected); Parainfluenza Virus 1 PCR Not Detected (NotDetected); Parainfluenza Virus 2 PCR Not Detected (NotDetected); Parainfluenza Virus 3 PCR Not Detected (NotDetected); Parainfluenza Virus 4 PCR Not Detected (NotDetected); Respiratory Syncytial VirusPCR Not Detected (NotDetected); Rhinovirus/Enterovirus PCR Not Detected (NotDetected)
[2025-05-07] MEDS: ACETAMINOPHEN 1000 MG/100 ML IV IV ONE (13:11)
[2025-05-07 13:40] LABS: Appearance Urine Clear (Clear); Bacteria Urine Automated None Seen (None Seen); Glucose Urine UA 2+ (Negative); WBC Urine Automated 0-5 /hpf (0-5)
--- NOTE | 2025-05-07 14:56 | History & Physical Report ---
Date of Service May 07, 2025 Assessment & Plan (1) Thrombocytopenia: (2) Hypoxia: (3) Generalized weakness: (4) Acute hypoxemic respiratory failure: (5) Hypertension: (6) Hyperlipidemia: (7) Anxiety: (8) GERD (gastroesophageal reflux disease): Plan Thrombocytopenia Acute hypoxic respiratory failure Generalized Weakness - Obs on med tele - Obtain tick borne panel, peripheral smear is negative. Tick bite was 10 days ago. Will send a western blot as symptoms are very suspicious for lymes with erythema migrans on photo shown by family member, generalized symptoms. - Doxycycline 100 mg BID ordered - needs 10 day course - Erythromycin ointment for possible bacterial conjunctivitis - Newly found hypoxia with o2 requirements in ER of 87%, does not shows sx of respiratory symptoms, monitor. CXR is without acute findings, breath sounds are clear on exam, during my visit she is walking around the room at 92%. - Plt 102 on admission, hgb is stable - VBG pending - CRP is elevated at 8 Rectal Pain/Pressure - No new changes in bowel habits, no abdominal pain, n/v/d/c. - Check hemmocult - Hx of internal hemorrhoids likely caused 1 episode of dark diarrhea x 1 last week. Since then has been having regular BMs. Hgb is stable at 12. - records from GI from [facility] are not available at this time, would recommend follow up outpatient with GI if persists. reports had recent colonoscopy within past 3 months, 4 biopsies were taken. She has repeat c-scope in 3 years for surveillance scheduled. - Can consider abdominal imaging if any symptoms worsen - UA appears uninfected HTN HLD - Cont home meds - bp is a little soft this evening, monitor. Was elevated upon arrival to the ER. Losartan 100 mg QAm and metoprolol succinate 25 mg daily ordered, holding parameters DM II - ISS with accuchecks achs, a1c with am labs - Ozempic weekly and jardiance PO. ISS Other medical Hx Remote hx of Breast cancer s/p left mastectomy in 2006- stable GERD - pantoprazole Mood disorder, Anxiety - buproprion DVT ppx: teds, scds Lines: PIV x 1, restricted limb disease s/p left mastectomy GI/Diet: CODE: FULL Dispo: From home, likely to remain in the hospital x 1 day A total of 75 minutes were spent with greater than 50% of that time face to face with the patient, personally reviewing all current laboratories, imaging studies, past medication reconciliation, outpatient chart review, and discussion with specialists to collaborate care for the patient with attending. Please see attending documentation for corrections and/or additions. History of Present Illness Chief Complaint: Weakness, fatigue, malaise Primary Care Provider: Eliana Frye MD This is a 85 yo F with PMHx of HTN, history of basal cell carcinoma history, breast cancer s/p left complete mastectomy in 2006, rotator cuff syndrome, carpal tunnel syndrome, GERD, generalized osteoarthritis, who presents to the hospital with worsening weakness, fatigue, malaise x 2 weeks. On Apr 21 was found to have tick attached to her left lower back which was on for over a 24 hr period. Family removed the tick. There was surrounding erythema and bullseye like rash at that time as she has a photo she shows me during our visit.She admits to having headache, low grade fevers, chills on and off throughout the past 2 weeks. Pt also notes that she is having increased rectal pressure/pain intermittently throughout this same timeframe. Reports one episode of dark foul smelling diarrhea but no BRBPR, no streaking of dark red appearance, no nausea, abdominal pain. She denies dizziness/lightheadedness. Pt presenting with thrombocytopenia plt 102 today. She notes redness of the left and right eye, which she was supposed to go see windmill technician tomorrow for. Denies blurred/vision loss. CXR is negative, RVP negative, Pt is hypoxic with O2 sats 87% here in the ER without prior episode of hypoxia. She denies any shortness of breath or breathing complaints today. BP is found to be slightly soft on admission at 99/43, O2 sats are 92% at the time of my visit. Pt is is seen walking about the room and states this is because of her restless leg syndrome. Allergies Allergy/AdvReac Type Severity Reaction Status Date / Time Iodinated Contrast Media Allergy Intermediate HIVES--IVP Verified 05/07/25 16:59 DYE Home Medications Medication Instructions Recorded Confirmed Type multivitamin 1 tab PO QAM 04/05/19 05/07/25 History bupropion HCl (smoking deter) 150 150 mg PO QDD 03/31/20 05/07/25 History mg tablet,12 hr sustained-release(smoking deterrent) pantoprazole 40 mg tablet,delayed 40 mg PO QAM 03/31/20 05/07/25 History release clopidogrel 75 mg tablet 75 mg PO QAM 05/19/20 05/07/25 History atorvastatin 40 mg tablet 40 mg PO HS 04/26/21 05/07/25 History calcium 600 mg (as 1 tab PO DAILY 04/26/21 05/07/25 History carbonate)-vitamin D3 10 mcg (400 unit) tablet (Calcium 600 + D(3)) cholecalciferol (vitamin D3) 25 25 mcg PO DAILY 04/26/21 05/07/25 History mcg (1,000 unit) capsule (Vitamin D3) ropinirole 2 mg tablet,extended 2 mg PO QPM 04/26/21 05/07/25 History release 24 hr baclofen 5 mg tablet 5 mg PO .UD PRN Muscle Spasm 05/07/25 05/07/25 History empagliflozin 10 mg tablet 10 mg PO UD 05/07/25 05/07/25 History (Jardiance) gabapentin 100 mg capsule 100 mg PO QAM 05/07/25 05/07/25 History gabapentin 100 mg tablet 200 mg PO .UD 05/07/25 05/07/25 History losartan 50 mg tablet 50 mg PO QPM 05/07/25 05/07/25 History metoprolol succinate 25 mg 25 mg PO QAM 05/07/25 05/07/25 History tablet,extended release 24 hr omega-3 fatty acids 1,000 mg 1,000 mg PO DAILY 05/07/25 05/07/25 History capsule semaglutide 1 mg/dose (4 mg/3 mL) 4 mg subcut WK 05/07/25 05/07/25 History subcutaneous pen injector (Ozempic) Past Med/Surg History Problem List (Updated 05/07/25 @ 14:42 by Cynthia Tafoya MD) Thrombocytopenia (Acute) Hypoxia (Acute) Generalized weakness (Acute) Acute hypoxemic respiratory failure COVID-19 (Acute) Abdominal pain (Acute) Hypoxia (Acute) Nausea (Acute) Acute lacunar stroke Left leg weakness (Acute) Restless leg syndrome Obesity Nocturnal hypoxemia Mild obstructive sleep apnea Diabetes (Acute) Hypertension (Acute) Hyperlipidemia (Acute) Anxiety (Acute) GERD (gastroesophageal reflux disease) (Acute) Diverticulitis (Acute) Medical History (Updated 05/07/25 @ 14:42 by Cynthia Tafoya MD) Stroke-like episode Surgical History History of hysterectomy Family History (Updated 05/27/19 @ 14:01 by Gianna Matute PA-C) Mother Myocardial infarction Father Myocardial infarction Brother Obstructive sleep apnea Social History (Updated 05/27/19 @ 14:01 by Gianna Matute PA-C) Smoking Status: Never smoker Tobacco Type: Cigarettes Hx Alcohol Use: No Hx Substance Use: No Preferred Language: [place]ian Communication Ability: Effective Lokie Engineer Required: No Beliefs That Will Affect Care: Congregation marital status: Current Living Situation: Spouse Feels Safe at Home: Yes Assistive Devices: Oxygen - Continuous Review of Systems Review of Systems: Constitutional: + low grade fever, chills malaise as per HPI Eyes: No diplopia, no worsening or blurred vision, + redness and itching in the left and right eye x 4 days. ENT: normal hearing, no trouble swallowing Respiratory: No cough, sputum, dyspnea at rest or on exertion Cardiovascular: No chest pain, tightness or palpitations Abdomen: See HPI. + rectal pain/pressure. No pain, nausea, vomiting, diarrhea or constipation Musculoskeletal: No joint pain, calf pain, swelling Neurologic: No weakness, numbness/tingling, or balance problems Psychiatric: No anxiety or depression Skin: No rash or itch Physical Exam Physical Exam: General: awake, alert, no apparent distress, white obese female, ambulating about the room. Head: Normocephalic, atraumatic ENT: PERRL, EOMI, + erythematous conjunctiva worse in the right compared to the left, no purulent exudate from tear ducts, no pharyngeal exudate, mucous membranes moist Chest: Clear to auscultation, on room air, no adventitious breath sounds Cardiac: Regular rate and rhythm, no murmur, no JVD, normal peripheral pulses, good capillary refill Abdominal: NABS x 4 quadrants, soft, nondistended, nontender to palpation, no rebound or guarding Back: small lesion R lower back s/p tick bite, no surrounding erythema Extremities: Normal inspection, no peripheral edema or erythema, calfs nontender to palpation Psych: Normal mood and affect Neuro: AAO x 3, strength intact bilaterally and rated 5/5, no motor deficits, speech is clear, no peripheral sensory deficits Results & Data Results & Data Vital Signs (Past 12 Hours) Vital Signs Temp Pulse Pulse Resp BP BP Pulse Ox 05/07/25 14:12 87 L 05/07/25 14:00 92 H 20 05/07/25 14:00 99/43 L 05/07/25 13:30 94 H 19 05/07/25 13:30 118/62 05/07/25 13:14 140/72 05/07/25 13:14 95 H 18 140/72 96 05/07/25 13:12 90 22 93 05/07/25 13:00 114/56 L 05/07/25 13:00 90 24 87 L 05/07/25 12:30 125/52 L 05/07/25 12:30 92 H 24 92 05/07/25 12:00 95 H 22 93 05/07/25 12:00 136/77 05/07/25 11:51 93 05/07/25 11:48 120/69 05/07/25 11:48 98 H 20 94 05/07/25 11:42 98 H 05/07/25 11:30 101 H 21 97 05/07/25 11:13 36.8 C 105 H 20 132/78 93 O2 Del Method 05/07/25 14:12 Room Air 05/07/25 14:00 05/07/25 14:00 05/07/25 13:30 05/07/25 13:30 05/07/25 13:14 05/07/25 13:14 Room Air 05/07/25 13:12 05/07/25 13:00 05/07/25 13:00 Room Air 05/07/25 12:30 05/07/25 12:30 Room Air 05/07/25 12:00 Room Air 05/07/25 12:00 05/07/25 11:51 Room Air 05/07/25 11:48 05/07/25 11:48 Room Air 05/07/25 11:42 05/07/25 11:30 Room Air 05/07/25 11:13 Room Air Laboratory Results 05/07/25 05/07/25 05/07/25 Unknown 11:47 11:40 WBC 6.02 RBC 4.15 L Hgb 12.5 Hct 37.6 MCV 90.6 MCH 30.1 MCHC 33.2 RDW Std Deviation 46.2 RDW Coeff of Andree 13.9 Plt Count 102 L MPV 11.5 Immature Gran % (Auto) 0.8 Neut % (Auto) 73.7 Lymph % (Auto) 14.0 [place] % (Auto) 11.0 Eos % (Auto) 0.2 Baso % (Auto) 0.3 Neut # (Auto) 4.44 Lymph # (Auto) 0.84 L [place] # (Auto) 0.66 H Eos # (Auto) 0.01 Baso # (Auto) 0.02 Immature Gran # (Auto) 0.05 PT 10.9 INR 1.0 Sodium 134 L Potassium 3.9 Chloride 103 Carbon Dioxide 23 Anion Gap 8 BUN 17 Creatinine 0.93 Est Cr Clr Drug Dosing Not Reportable eGFR 60.98 BUN/Creatinine Ratio 18.3 Glucose 105 H Lactate 1.6 Calcium 8.7 Total Bilirubin 0.9 AST 28 ALT 37 Alkaline Phosphatase 69 Troponin I High Sens 8.6 Total Protein 6.6 Albumin 3.6 Globulin 3.0 Albumin/Globulin Ratio 1.2 Lipase 40 Urine Color Yellow Urine Appearance Clear Urine pH 6.0 Ur Specific [place] 1.020 Urine Protein 1+ H Urine Glucose (UA) 2+ H Urine Ketones 1+ H Urine Blood Negative Urine Nitrite Negative Urine Bilirubin Negative Urine Urobilinogen Negative Ur Leukocyte Esterase Negative Urine WBC (Auto) 0-5 Urine RBC (Auto) 3-5 H U Hyaline Cast (Auto) 3-5 H U Epithel Cells (Auto) 3-5 H Urine Bacteria (Auto) None Seen Urine Comment Adenovirus (PCR) Anaplasma Smear See Comment Babesia Smear See Comment B. pertussis DNA (PCR) B.parapertussis DNA PCR Lyme Disease Screen Negative C. pneumoniae DNA (PCR) Coronavirus OC43 (PCR) Coronavirus HKU1 (PCR) Coronavirus 229E (PCR) SARS-CoV-2 (PCR) Coronavirus NL63 (PCR) Human Metapneumovir PCR Influenza Type A (PCR) Influenza Type B (PCR) M. pneumoniae (PCR) Parainfluenza 1 (PCR) Parainfluenza 2 (PCR) Parainfluenza 3 (PCR) Parainfluenza 4 (PCR) RSV (PCR) Entero/Rhino (PCR) Blood Type O Positive Antibody Screen NEGATIVE 05/07/25 11:36 WBC RBC Hgb Hct MCV MCH MCHC RDW Std Deviation RDW Coeff of Andree Plt Count MPV Immature Gran % (Auto) Neut % (Auto) Lymph % (Auto) [place] % (Auto) Eos % (Auto) Baso % (Auto) Neut # (Auto) Lymph # (Auto) [place] # (Auto) Eos # (Auto) Baso # (Auto) Immature Gran # (Auto) PT INR Sodium Potassium Chloride Carbon Dioxide Anion Gap BUN Creatinine Est Cr Clr Drug Dosing eGFR BUN/Creatinine Ratio Glucose Lactate Calcium Total Bilirubin AST ALT Alkaline Phosphatase Troponin I High Sens Total Protein Albumin Globulin Albumin/Globulin Ratio Lipase Urine Color Urine Appearance Urine pH Ur Specific [place] Urine Protein Urine Glucose (UA) Urine Ketones Urine Blood Urine Nitrite Urine Bilirubin Urine Urobilinogen Ur Leukocyte Esterase Urine WBC (Auto) Urine RBC (Auto) U Hyaline Cast (Auto) U Epithel Cells (Auto) Urine Bacteria (Auto) Urine Comment Adenovirus (PCR) Not Detected Anaplasma Smear Babesia Smear B. pertussis DNA (PCR) Not Detected B.parapertussis DNA PCR Not Detected Lyme Disease Screen C. pneumoniae DNA (PCR) Not Detected Coronavirus OC43 (PCR) Not Detected Coronavirus HKU1 (PCR) Not Detected Coronavirus 229E (PCR) Not Detected SARS-CoV-2 (PCR) Not Detected Coronavirus NL63 (PCR) Not Detected Human Metapneumovir PCR Not Detected Influenza Type A (PCR) Not Detected Influenza Type B (PCR) Not Detected M. pneumoniae (PCR) Not Detected Parainfluenza 1 (PCR) Not Detected Parainfluenza 2 (PCR) Not Detected Parainfluenza 3 (PCR) Not Detected Parainfluenza 4 (PCR) Not Detected RSV (PCR) Not Detected Entero/Rhino (PCR) Not Detected Blood Type Antibody Screen Diagnostic Findings Chest X-Ray 05/07/25 11:21 XR chest 1V portable CLINICAL HISTORY: weakness COMPARISON STUDY: 04/26/2021 FINDINGS: Heart size and pulmonary vasculature are normal. Exam is rotated. No consolidation or pleural effusion seen. No pneumothorax. IMPRESSION: No acute findings. ACT 112: Negative or not required by law. Electronically signed by: Khurram Casper M.D. 05/07/2025 12:47 PM Code Status & VTE Plan Code Status Full code - discussed with pt at bedside. Supervising Physician Co-Signing Physician Notes Patient seen and examined at bedside. Presenting with numerous concerns, including: bodyaches, chills, low grade fever, rectal pressure, eye redness. Ambulating well. Had tick stuck to her with picture of tick rash with central clearing. Per patient feeling much better now. On exam, red conjunctiva noted, otherwise unremarkable. Right lower back erythema, small where tick attached and occurred. No leukocytosis, Na of 134 at baseline, CRP of 8.5, thrombocytosis of 102 noted. Biofire negative, tick borne illness screen negative. Patient with bullseye rash, thrombocytopenia, weakness, backaches concerning tick borne disease, despite negative DNA test. Will do empiric 10 day test of doxycycline. Other considerations would be other viral illness not on biofire, less likely erythema multiforme, other bacterial etiology, drug rash, vasculitis. -10 day course of doxy -PT/OT ordered -gentle hydration -rectal pressure likely 2/2 internal hemorrhoids (previously diagnosed) or other hemorrhoidal disease, is up to date on colonoscopy, should follow up with PCP outpatient given no alarm symptoms (no significant weight loss, rectal bleeding) -check AM cortisol, TSH given mild hypotension I have seen and discussed the case with the collaborating advanced practitioner. I agree with the above H&P. I have reviewed and confirmed the patients medical history, the findings on physical examination, and the patients diagnosis and treatment plan with Shadia De La Cruz PA-C and agree with the information documented. I spent a total of 30 minutes coordinating, documenting, and providing care for this patient excluding time spent in the performance of separately billed services. All of the aforementioned completed outside of collaborating with the assigned advanced practitioner for a full treatment plan. I have reviewed the advanced practitioner's documentation, and I agree with, and take responsibility for the plan of care
[2025-05-07] MEDS: ERYTHROMYCIN OP OINT 5 MG/GM 3.5 GM TUBE OP SCH (16:57)
[2025-05-07] MEDS ORDERED: ERYTHROMYCIN OP OINT 1 GM PKT OP SCH (17:00)
[2025-05-07 17:07] LABS: Base Excess VBG -1.1 mEq/L; HCO3 VBG 25 mmol/L; Oxygen Saturation VBG < 60.0 %; PCO2 VBG 45 mmHg (38-50); PO2 VBG 20 mmHg; pH VBG 7.35 (7.36-7.41)
[2025-05-07] MEDS ORDERED: CARBOHYDRATES FOR HYPOGLYCEMIA PO PRN (17:35)
[2025-05-07] MEDS ORDERED: GLUCAGON FOR INJ 1 MG VIAL SQ PRN (17:35)
[2025-05-07] MEDS ORDERED: GLUCOSE 10 TAB/TUBE PO PRN (17:35)
[2025-05-07] MEDS ORDERED: ONDANSETRON INJ 2 MG/ML 2 ML VIAL IV PRN (17:35)
[2025-05-07] MEDS ORDERED: GLUCOSE 40% GEL 15 GM TUBE PO PRN (17:35)
[2025-05-07] MEDS ORDERED: DEXTROSE 50% 50 ML SYRINGE IV PRN (17:35)
[2025-05-07] MEDS: INSULIN ASPART PER UNIT CHARGE SC SCH (18:00)
[2025-05-07] MEDS: SODIUM CHLORIDE 0.9% 1,000 ML IV SCH (18:47)
[2025-05-07] MEDS: CALCIUM 600MG + VIT D 400 IU TAB PO SCH (21:17)
[2025-05-07] MEDS: DOXYCYCLINE HYCLATE 100 MG CAP PO SCH (21:17)
[2025-05-07] MEDS: ACETAMINOPHEN 325 MG TAB PO PRN (21:18)
[2025-05-07] MEDS: GABAPENTIN 100 MG CAP PO SCH (21:18)
[2025-05-07 22:34] LABS: Thyroid Stimulating Hormone 0.649 uIu/ml (0.300-4.500)
[2025-05-08 08:15] LABS: Hematocrit (blood only) 32.8 % (37.0-47.0); Hemoglobin 10.8 g/dl (12.0-16.0); Mean Corpuscular Hemoglobin 29.8 pg (25.0-34.0); Mean Corpuscular Volume 90.6 fL (80.0-100.0); Platelet Count 107 K/uL (130-400); RDW Standard Deviation 46.5 fL (36.4-46.3); Red Blood Count 3.62 M/uL (4.20-5.40); White Blood Count 4.83 K/ul (4.8-10.8)
[2025-05-08 08:21] LABS: Anion Gap 6.0 (3-11); Blood Urea Nitrogen 18.0 mg/dl (6-23); Calcium 8.4 mg/dl (8.6-10.3); Carbon Dioxide 25.0 mmol/L (21-32); Chloride 108.0 mmol/L (98-107); Creatinine Clr Calc Pharmacy 47.9 ml/min; Glucose 95.0 mg/dl (70-99(Fasting)); Potassium 3.4 mmol/L (3.5-5.1); Sodium 139.0 mmol/L (136-145)
[2025-05-08 08:25] LABS: Hemoglobin A1C 5.9 % (4.5-5.6)
[2025-05-08] MEDS ORDERED: OMEGA-3 (PURIFIED FISH OIL) 1 GM CAP PO SCH (09:00)
[2025-05-08 09:17] LABS: Immature Granulocytes # (auto) 0.03 K/uL (0.01-0.20); Immature Granulocytes % (auto) 0.6 %
[2025-05-08] MEDS: MULTIVITAMIN TAB PO SCH (09:49)
[2025-05-08] MEDS: MAGNESIUM CITRATE 296 ML/BTL PO STA (09:49)
[2025-05-08] MEDS: CHOLECALCIFEROL 25 MCG (1000 UNITS) TAB PO SCH (09:49)
[2025-05-08] MEDS: ATORVASTATIN 40 MG TAB PO SCH (09:49)
[2025-05-08] MEDS: LOSARTAN POTASSIUM 50 MG TAB PO SCH (09:50)
[2025-05-08] MEDS: CLOPIDOGREL BISULFATE 75 MG TAB PO SCH (09:51)
[2025-05-08] MEDS: METOPROLOL SUCC 25MG EXT REL TAB PO SCH (09:51)
[2025-05-08] MEDS ORDERED: Nursing to Pharmacy Communication SCH (10:15)
--- NOTE | 2025-05-08 12:47 | Hospitalist Progress Note ---
Date of Service May 08, 2025 Assessment & Plan (1) Thrombocytopenia: (2) Hypoxia: (3) Generalized weakness: (4) Acute hypoxemic respiratory failure: (5) Hypertension: (6) Hyperlipidemia: (7) Anxiety: (8) GERD (gastroesophageal reflux disease): Plan Thrombocytopenia Acute hypoxic respiratory failure Generalized Weakness Patient presented to the hospital due to generalized weakness, fatigue, headache. Reports tick bite several days ago Lyme screen negative Peripheral smear negative Platelet count 102K on admission Patient currently on doxycycline; reports improvement in the symptoms. Follow-up on tickborne panel. Patient being treated for presumed Lyme/Anaplasma. HTN HLD -Hold losartan; continue on metoprolol. DM II - ISS with accuchecks achs, a1c with am labs - Ozempic weekly and jardiance PO. ISS Other medical Hx Remote hx of Breast cancer s/p left mastectomy in 2006- stable GERD - pantoprazole Mood disorder, Anxiety - buproprion DVT ppx: teds, scds Lines: PIV x 1, restricted limb disease s/p left mastectomy GI/Diet: CODE: FULL Please note the above document was generated using voice recognition software. It may contain grammatical, syntax or spelling errors. Any formal questions or concerns about the content, text or information contained within the body of this dictation should be directly addressed to the provider for clarification Admission and Anticipated Discharge Date Admission Date: May 07, 2025 Subjective Patient seen and examined at bedside. She reports that she is feeling slightly better compared to previous day. She reported constipation which was relieved by mag citrate Review of Systems Review of Systems: All systems reviewed & are unremarkable except as noted in Subjective Physical Exam Physical Exam: General: awake, alert, no apparent distress, Chest: Clear to auscultation, on room air, no adventitious breath sounds Cardiac: Regular rate and rhythm, no murmur, no JVD, normal peripheral pulses, good capillary refill Abdominal: NABS x 4 quadrants, soft, nondistended, nontender to palpation, no rebound or guarding Back: small lesion R lower back s/p tick bite, no surrounding erythema Extremities: Normal inspection, no peripheral edema or erythema, calfs nontender to palpation Psych: Normal mood and affect Neuro: AAO x 3, strength intact bilaterally and rated 5/5, no motor deficits, speech is clear, no peripheral sensory deficits Results & Data Results & Data Vital Signs (Past 12 Hours) Vital Signs Temp Pulse Pulse Resp BP Pulse Ox O2 Del Method 05/08/25 11:17 36.4 C L 79 19 96/60 L 91 Room Air 05/08/25 07:21 87 05/08/25 07:15 36.9 C 79 18 96/59 L 92 Room Air 05/08/25 03:28 Room Air 05/08/25 03:27 88 05/08/25 03:15 36.7 C 92 H 15 110/70 93 Room Air
[2025-05-08] MEDS ORDERED: LOSARTAN POTASSIUM 50 MG TAB PO SCH (21:00)
[2025-05-08] MEDS: diphenhydrAMINE Capsule 25 MG CAP PO ONE (23:25)
[2025-05-09 02:53] VITALS: O2SAT 93
[2025-05-09 06:18] LABS: Hematocrit (blood only) 33.9 % (37.0-47.0); Hemoglobin 11.3 g/dl (12.0-16.0); Mean Corpuscular Hemoglobin 29.9 pg (25.0-34.0); Mean Corpuscular Volume 89.7 fL (80.0-100.0); Platelet Count 155 K/uL (130-400); RDW Standard Deviation 45.4 fL (36.4-46.3); Red Blood Count 3.78 M/uL (4.20-5.40); White Blood Count 3.88 K/ul (4.8-10.8)
[2025-05-09 06:40] LABS: Anion Gap 9.0 (3-11); Blood Urea Nitrogen 19.0 mg/dl (6-23); Calcium 8.9 mg/dl (8.6-10.3); Carbon Dioxide 23.0 mmol/L (21-32); Chloride 109.0 mmol/L (98-107); Creatinine Clr Calc Pharmacy 43.5 ml/min; Glucose 83.0 mg/dl (70-99(Fasting)); Potassium 3.7 mmol/L (3.5-5.1); Sodium 141.0 mmol/L (136-145)
[2025-05-09 07:08] VITALS: BP 124/70; RESP 19; TEMP 98.2
[2025-05-09 07:36] LABS: Immature Granulocytes # (auto) 0.04 K/uL (0.01-0.20); Immature Granulocytes % (auto) 1.0 %
[2025-05-09] MEDS: LORATADINE 10 MG TAB PO ONE (09:38)
[2025-05-09 10:10] VITALS: PULSE 78
--- NOTE | 2025-05-09 10:59 | Discharge Summary ---
Date of Service May 09, 2025 Admission HPI Per Admitting Provider This is a 85 yo F with PMHx of HTN, history of basal cell carcinoma history, breast cancer s/p left complete mastectomy in 2006, rotator cuff syndrome, carpal tunnel syndrome, GERD, generalized osteoarthritis, who presents to the hospital with worsening weakness, fatigue, malaise x 2 weeks. On Apr 21 was found to have tick attached to her left lower back which was on for over a 24 hr period. Family removed the tick. There was surrounding erythema and bullseye like rash at that time as she has a photo she shows me during our visit.She admits to having headache, low grade fevers, chills on and off throughout the past 2 weeks. Pt also notes that she is having increased rectal pressure/pain intermittently throughout this same timeframe. Reports one episode of dark foul smelling diarrhea but no BRBPR, no streaking of dark red appearance, no nausea, abdominal pain. She denies dizziness/lightheadedness. Pt presenting with thrombocytopenia plt 102 today. She notes redness of the left and right eye, w hich she was supposed to go see register of deeds tomorrow for. Denies blurred/vision loss. CXR is negative, RVP negative, Pt is hypoxic with O2 sats 87% here in the ER without prior episode of hypoxia. She denies any shortness of breath or breathing complaints today. BP is found to be slightly soft on admission at 99/43, O2 sats are 92% at the time of my visit. Pt is is seen walking about the room and states this is because of her restless leg syndrome. Admission Exam Per Admitting Provider General: awake, alert, no apparent distress, white obese female, ambulating about the room. Head: Normocephalic, atraumatic ENT: PERRL, EOMI, + erythematous conjunctiva worse in the right compared to the left, no purulent exudate from tear ducts, no pharyngeal exudate, mucous membranes moist Chest: Clear to auscultation, on room air, no adventitious breath sounds Cardiac: Regular rate and rhythm, no murmur, no JVD, normal peripheral pulses, good capillary refill Abdominal: NABS x 4 quadrants, soft, nondistended, nontender to palpation, no rebound or guarding Back: small lesion R lower back s/p tick bite, no surrounding erythema Extremities: Normal inspection, no peripheral edema or erythema, calfs nontender to palpation Psych: Normal mood and affect Neuro: AAO x 3, strength intact bilaterally and rated 5/5, no motor deficits, speech is clear, no peripheral sensory deficits Principal Diagnosis Thrombocytopenia Acute hypoxic respiratory failure Generalized Weakness Discharge Exam General: awake, alert, no apparent distress, Chest: Clear to auscultation, on room air, no adventitious breath sounds Cardiac: Regular rate and rhythm, no murmur, no JVD, normal peripheral pulses, good capillary refill Abdominal: NABS x 4 quadrants, soft, nondistended, nontender to palpation, no rebound or guarding Back: small lesion R lower back s/p tick bite, no surrounding erythema Extremities: Normal inspection, no peripheral edema or erythema, calfs nontender to palpation Psych: Normal mood and affect Neuro: AAO x 3, strength intact bilaterally and rated 5/5, no motor deficits, speech is clear, no peripheral sensory deficits Discharge Data Allergies Allergy/AdvReac Type Severity Reaction Status Date / Time Iodinated Contrast Media Allergy Intermediate HIVES--IVP Verified 05/07/25 16:59 DYE Consultations 05/07/25 14:53 ED Decision to Admit Stat Hospital Course (1) Thrombocytopenia: (2) Hypoxia: (3) Generalized weakness: (4) Acute hypoxemic respiratory failure: (5) Hypertension: (6) Hyperlipidemia: (7) Anxiety: (8) GERD (gastroesophageal reflux disease): Plan Thrombocytopenia Generalized Weakness Patient presented to the hospital due to generalized weakness, fatigue, headache. Reports tick bite several days ago Lyme screen negative Peripheral smear negative Platelet count 102K on admission Patient was admitted to medical floor; was started on doxycycline for presumed anaplasmosis/Lyme. Patient reported significant improvement in her symptoms with improved energy, resolution of headache. She was afebrile throughout the hospitalization. Her platelet count gradually improved as well. Her confirmatory lab for Anaplasma/babesiosis was still pending at the time of the discharge. Patient discharged on total of 10-day course of doxycycline; follow- up with her primary care doctor. Please note the above document was generated using voice recognition software. It may contain grammatical, syntax or spelling errors. Any formal questions or concerns about the content, text or information contained within the body of this dictation should be directly addressed to the provider for clarification Total Time Total Time Spent Total Time Spent (In Minutes): 45 Total Time Includes: Examination of the Patient, Discharge Planning, Medication Reconciliation, Communication With Other Providers and Other Discharge Plan Discharge Items Patient Disposition: Home - Self-Care Reason For Visit: TROMBOCYTOPENIA, ACUTE HYPOXIC RSPIRATORY FAILURE Discharge Diagnosis: Thrombocytopenia Acute hypoxic respiratory failure Generalized Weakness Condition on Discharge: Fair Activity: Resume your previous activity Non-emergency contact: Primary Care Provider Call non-emergency contact if: you have any medication questions and your symptoms worsen Follow-up/Referrals: Eliana Frye MD [Primary Care Provider] - (PCP office will call to schedule follow up) Diet: Regular Addtl Attending Provider Instructions: You were admitted to the hospital due to tick bite. The likely cause for your symptoms is Lyme disease or anaplasmosis. The confirmatory test however is pending at this time. You have been prescribed doxycycline to be taken twice a day for 8 more days to complete the course. An appointment will be set up with your primary care doctor for follow-up. Pending Studies at Discharge: No Studies:: Tickborne panel Stand-Alone Forms: My [facility] [employer], Smoking Cessation Medications and DC Order Prescriptions: New doxycycline hyclate 100 mg Capsule 100 mg PO BID 8 Days Qty: 16 0RF loratadine [Claritin] 10 mg tablet 10 mg PO DAILY 8 Days Qty: 8 0RF Continued clopidogrel 75 mg tablet 75 mg PO QAM multivitamin tablet 1 tab PO QAM pantoprazole 40 mg tablet,delayed release (DR/EC) 40 mg PO QAM bupropion HCl (smoking deter) 150 mg tablet extended release 12 hr 150 mg PO QDD atorvastatin 40 mg tablet 40 mg PO HS cholecalciferol (vitamin D3) [Vitamin D3] 25 mcg (1,000 unit) Capsule 25 mcg PO DAILY calcium carbonate-vitamin D3 [Calcium 600 + D(3)] 600 mg(1,500mg) -400 unit Tablet 1 tab PO DAILY ropinirole 2 mg Tablet Extended Release 24 Hr 2 mg PO QPM Rx Instructions: TAKES AT 1700 DAILY. metoprolol succinate 25 mg tablet extended release 24 hr 25 mg PO QAM Jardiance 10 mg tablet 10 mg PO UD Rx Instructions: 05/07/25 : TAKE ONE TABLET IN THE MORNING ON MON/WED/FRI. Ozempic 1 mg/dose (4 mg/3 mL) pen injector 4 mg SUBCUT WK losartan 50 mg tablet 50 mg PO QPM gabapentin 100 mg capsule 100 mg PO QAM gabapentin 100 mg Tablet 200 mg PO .UD Rx Instructions: 05/07/25 : TAKE TWO TABLETS AFTER EVENING MEAL omega-3 fatty acids 1,000 mg Capsule 1,000 mg PO DAILY baclofen 5 mg tablet 5 mg PO .UD PRN (Reason: Muscle Spasm) Rx Instructions: 05/07/25 : TAKE ONE TABLET AFTER EVENING MEAL, NEEDED, FOR MUSCLE SPASM. Discharge Orders: Discharge Order (Routine); Ordered 05/09/25 Ordered By: Matthew Caldwell/Other Patient Handouts: Managing Type 2 Diabetes Admission Data Admit Date/Time: 05/08/25 15:02 Attending Provider: Matthew Leal Admit Provider: Quintin Sandoval Primary Care Provider: Eliana Frye Other Providers: Quintin Sandoval Other Interventions: Discharge Summary Assessment (RN) Last Done: 05/09/25 10:09
[2025-05-13 03:02] LABS: Lyme Antibodies, WB IgG NEGATIVE (NEGATIVE); Lyme Antibodies, WB IgM NEGATIVE (NEGATIVE)
== END 2025-05-09 11:25 | disposition home or self-care (01) | DRG 867 ==
LOC: ED 11:04 → EDINP 11:04 → SUATTDRO 16:06 → 4W 17:36